=== PATIENT | female | born 1950 | race Caucasian/White ===

== ENCOUNTER 2016-10-19 17:02 | Observation (INO) | payer MEDICARE ==
[2016-10-19] MEDS ORDERED: HYDROMORPHONE HCL INJ/PF 2 MG/ML AMPULE ONE (18:36)
[2016-10-19] MEDS ORDERED: ALPRAZOLAM 0.5 MG TABLET PO SCH (18:45)
[2016-10-19] MEDS ORDERED: METHYLPREDNISOLONE INJ 125 MG/2 ML SDV IV ONE (19:45)
[2016-10-19 19:58] LABS: ABSOLUTE BASOPHILS # (AUTO) 0.1 10^3/uL (0.0-0.2); ABSOLUTE EOSINOPHILS # (AUTO) 0.2 10^3/uL (0.0-0.6); ABSOLUTE LYMPHOCYTES (AUTO) 2.5 10^3/uL (0.5-4.7); ABSOLUTE MONOCYTES (AUTO) 0.5 10^3/uL (0.1-1.4); ABSOLUTE NEUT (AUTO) 3.9 10^3/uL (1.7-8.2); BASOPHILS % (AUTO) 1.2 % (0-2); EOSINOPHILS % (AUTO) 3.2 % (0-6); HEMATOCRIT 32.1 % (36.0-47.0); HEMOGLOBIN 10.9 g/dL (12.0-15.5); HGB HCT DIFFERENCE 0.6; MEAN CORPUSCULAR HEMOGLOBIN 32.5 pg (27.0-33.4); MEAN CORPUSCULAR HGB CONC 33.8 g/dL (32.0-36.0); MEAN CORPUSCULAR VOLUME 96 fl (80-97); MONOCYTES % (AUTO) 6.4 % (3-13); RED BLOOD COUNT 3.35 10^6/uL (3.72-5.28); RED CELL DISTRIBUTION WIDTH 13.2 % (11.5-14.0); SEGMENTED NEUTROPHILS % (AUTO) 54.2 % (42-78); WHITE BLOOD COUNT 7.1 10^3/uL (4.0-10.5)
[2016-10-19 20:12] LABS: ALANINE AMINOTRANSFERASE 31 U/L (9-52); ALBUMIN 4.2 g/dL (3.5-5.0); ALKALINE PHOSPHATASE 99 U/L (38-126); ANION GAP 11 (5-19); ASPARTATE AMINO TRANSFERASE 32 U/L (14-36); BILIRUBIN,DIRECT 0.4 mg/dL (0.0-0.4); BILIRUBIN,TOTAL 0.8 mg/dL (0.2-1.3); BLOOD UREA NITROGEN 15 mg/dL (7-20); CALCIUM 10.6 mg/dL (8.4-10.2); CARBON DIOXIDE 25 mmol/L (22-30); CHLORIDE 108 mmol/L (98-107); CREATININE RESULT 1.18 mg/dL (0.52-1.25); GLUCOSE 134 mg/dL (75-110); POTASSIUM 4.1 mmol/L (3.6-5.0); SODIUM 144.2 mmol/L (137-145); TOTAL PROTEIN 7.1 g/dL (6.3-8.2)
[2016-10-19] MEDS: HYDROCODONE/ACETAMINOPHEN 10-325 MG TABLET PO PRN (21:02)
[2016-10-19] MEDS ORDERED: HYDROXYZINE PAMOATE 50 MG CAPSULE PO PRN (22:14)
[2016-10-19 22:17] LABS: APPEARANCE,URINE CLEAR; BILIRUBIN,URINE NEGATIVE (NEGATIVE); GLUCOSE, URINE NEGATIVE (NEGATIVE); KETONES,URINE NEGATIVE (NEGATIVE); LEUKOCYTE ESTERASE,URINE NEGATIVE (NEGATIVE); NITRITE,URINE NEGATIVE (NEGATIVE); PROTEIN,URINE NEGATIVE (NEGATIVE); URINE SPECIFIC GRAVITY 1.009; UROBILINOGEN,URINE NEGATIVE mg/dL (<2.0)
[2016-10-19] MEDS ORDERED: DONEPEZIL HCL 5 MG TABLET PO ONE (23:00)
[2016-10-19] MEDS ORDERED: AMITRIPTYLINE HCL 50 MG TABLET PO ONE (23:00)
[2016-10-19] MEDS ORDERED: MIRTAZAPINE 15 MG TABLET PO ONE (23:00)
[2016-10-19] MEDS ORDERED: ALPRAZOLAM 0.5 MG TABLET PO ONE (23:00)
[2016-10-20] MEDS: HYDROMORPHONE HCL INJ/PF 2 MG/ML AMPULE IV PRN ×3 (00:40→14:18)
[2016-10-20] MEDS: METHYLPREDNISOLONE INJ 125 MG/2 ML SDV IV SCH ×2 (02:14→09:11)
[2016-10-20] MEDS: ALPRAZOLAM 0.5 MG TABLET PO SCH ×2 (05:34→13:08)
[2016-10-20] MEDS ORDERED: ASPIRIN 81 MG TABLET, CHEWABLE PO SCH (10:00)
[2016-10-20] MEDS ORDERED: BENZTROPINE MESYLATE 1 MG TABLET PO SCH (10:00)
[2016-10-20] MEDS ORDERED: PAROXETINE HCL 20 MG TABLET PO SCH (10:00)
[2016-10-20] MEDS: HYDROCODONE/ACETAMINOPHEN 10-325 MG TABLET PO PRN (10:51)
--- NOTE | 2016-10-20 14:48 | PDOC H&P ---
History of Present Illness Admission Date/PCP: 10/19/16 17:02 ANNABELLE DALTON MD History of Present Illness: JOCELYN KIM is a 66 year old female, she has a history of chronic pain from lumbar disc disease, dementia, she came to the office with complaint of back pain, difficulty standing, numbness and tingling of the legs. She said she cannot stand to even wash the dishes, she also stated she is having difficulty with activities of daily living. She came in as as a same day urgent visit , she has no appointment to be seen in the office today.. She was evaluated in the office, there was minimal loss of muscle strength of the lower extremities, because of concern for cauda equina syndrome, she was admitted directly from the office into the hospital for evaluation and management of her symptoms. MRI of the lumbar spine was done. The MRI showed multilevel disc desiccation with loss of height, there is no significant spinal stenosis or exit foraminal stenosis at L1-L2 , L1-L2, there is mild disc desiccation with minimal broad based bulging no significant spinal stenosis or exit foraminal stenosis at L3-L4 , there is mild broad based disc bulging. Right sided perineural cyst measuring 10 mm there is no significant spinal stenosis or exit foraminal stenosis at L4-L5 Past Medical History Cardiac Medical History: Reports: Hypertension GI Medical History: Reports: Gastroesophageal Reflux Disease Musculoskeltal Medical History: Reports: Arthritis - all over (not sure if rheumatiod) Psychiatric Medical History: Reports: Bipolar Disorder, Dementia, Depression Social History Smoking Status: Former Smoker Drugs: None - Advance Directive Resuscitation Status: Full Code Family History Parental Family History Reviewed: Yes Children Family History Reviewed: Yes Sibling(s) Family History Reviewed.: Yes Medication/Allergy Home Medications: Alprazolam [Xanax] 1 mg PO TID 10/20/16 Amitriptyline HCl [Elavil 50 mg Tablet] 50 mg PO QHS 10/20/16 Aspirin [Aspirin 81 mg Chewable Tablet] 81 mg PO DAILY 10/20/16 Benztropine Mesylate [Benztropine Mesylate 0.5 mg Tablet] 0.5 mg PO QHS Diclofenac Sodium/Misoprostol [Arthrotec 75 mg-200 Mcg Tab] 1 each PO BID #60 tablet. 10/20/16 Donepezil HCl [Aricept] 10 mg PO QPM 10/20/16 Mirtazapine [Remeron] 45 mg PO QHS 10/20/16 Paroxetine HCl [Paxil] 60 mg PO QAM 10/20/16 Prednisone 20 mg PO DAILY #40 tablet 10/20/16 Allergies/Adverse Reactions: carbamazepine [From Tegretol] Allergy (Intermediate, Verified 10/19/16 18:51) swelling/itching ceftriaxone [From Rocephin] Allergy (Intermediate, Verified 10/19/16 18:51) swelling/itching iodine Allergy (Intermediate, Verified 10/19/16 18:50) swelling/itching Review of Systems Constitutional: ABSENT: chills, fever(s), headache(s), weight gain, weight loss Eyes: ABSENT: visual disturbances Ears: ABSENT: hearing changes Cardiovascular: ABSENT: chest pain, dyspnea on exertion, edema, orthropnea, palpitations Respiratory: ABSENT: cough, hemoptysis Gastrointestinal: ABSENT: abdominal pain, constipation, diarrhea, hematemesis, hematochezia, nausea, vomiting Genitourinary: ABSENT: dysuria, hematuria Musculoskeletal: PRESENT: back pain Integumentary: ABSENT: rash, wounds Neurological: PRESENT: abnormal gait, numbness, paresthesias Psychiatric: ABSENT: anxiety, depression, homidical ideation, suicidal ideation Endocrine: ABSENT: cold intolerance, heat intolerance, menstrual abnormalities, polydipsia, polyuria Hematologic/Lymphatic: ABSENT: easy bleeding, easy bruising, lymphadenopathy Physical Exam Vital Signs: Temp Pulse Resp BP Pulse Ox 98 F 69 17 140/80 H 97 10/20/16 12:00 10/20/16 12:00 10/20/16 12:00 10/20/16 12:00 10/20/16 12:00 Intake & Output 10/19/16 10/20/16 10/21/16 06:59 06:59 06:59 Intake Total 390 Balance 390 Weight 66.3 kg General appearance: PRESENT: no acute distress, well-developed, well-nourished Head exam: PRESENT: atraumatic, normocephalic Eye exam: PRESENT: conjunctiva pink, EOMI, PERRLA Ear exam: PRESENT: normal external ear exam Mouth exam: PRESENT: moist, tongue midline Neck exam: PRESENT: full ROM Respiratory exam: PRESENT: clear to auscultation courtney Cardiovascular exam: PRESENT: RRR, +S1 Vascular exam: PRESENT: normal capillary refill GI/Abdominal exam: PRESENT: normal bowel sounds, soft Rectal exam: PRESENT: deferred Neurological exam: PRESENT: alert, awake, oriented to person, oriented to place , oriented to time, oriented to situation, CN II-XII grossly intact Psychiatric exam: PRESENT: appropriate affect, normal mood Skin exam: PRESENT: dry, intact, warm Results Laboratory Results: 10/19/16 19:44 10/19/16 19:44 10/19/16 10/19/16 10/19/16 19:44 19:44 20:00 WBC 7.1 RBC 3.35 L Hgb 10.9 L Hct 32.1 L MCV 96 MCH 32.5 MCHC 33.8 RDW 13.2 Plt Count 214 Seg Neutrophils % 54.2 Lymphocytes % 35.0 Monocytes % 6.4 Eosinophils % 3.2 Basophils % 1.2 Absolute Neutrophils 3.9 Absolute Lymphocytes 2.5 Absolute Monocytes 0.5 Absolute Eosinophils 0.2 Absolute Basophils 0.1 Sodium 144.2 Potassium 4.1 Chloride 108 H Carbon Dioxide 25 Anion Gap 11 BUN 15 Creatinine 1.18 Est GFR ( Amer) 55 L Est GFR (Non-Af Amer) 46 L Glucose 134 H Calcium 10.6 H Total Bilirubin 0.8 AST 32 ALT 31 Alkaline Phosphatase 99 Total Protein 7.1 Albumin 4.2 Urine Color STRAW Urine Appearance CLEAR Urine pH 5.0 Ur Specific [place] 1.009 Urine Protein NEGATIVE Urine Glucose (UA) NEGATIVE Urine Ketones NEGATIVE Urine Blood NEGATIVE Urine Nitrite NEGATIVE Ur Leukocyte Esterase NEGATIVE Urine WBC (Auto) 1 Urine RBC (Auto) 0 Impressions: Chest X-Ray 10/19/16 00:00 IMPRESSION: NO SIGNIFICANT RADIOGRAPHIC FINDING IN THE CHEST. Lumbar Spine MRI 10/19/16 00:00 IMPRESSION: MILD MULTILEVEL DEGENERATIVE DISC DISEASE WITHOUT SIGNIFICANT SPINAL CANAL STENOSIS OR NEURAL FORAMINAL NARROWING. INCIDENTAL PERINEURAL AND TARLOV CYSTS ABOVE. Assessment & Plan - Diagnosis (1) Lumbar disc disease with radiculopathy Is this a current diagnosis for this admission?: YesPlan: Patient was admitted for observation because of radicular symptoms she was treated empirically with intravenous Solu-Medrol and she was continued on her regular home medications there is no MRI evidence of cauda equina syndrome (2) Essential (primary) hypertension Is this a current diagnosis for this admission?: Yes
--- NOTE | 2016-10-20 15:01 | PDOC DISCHARGE SUMMARY ---
General - Admit/Disc Date/PCP Admission Date/Primary Care Provider: 10/19/16 17:02 ANNABELLE DALTON MD Discharge Date: 10/20/16 - Discharge Diagnosis (1) Lumbar disc disease with radiculopathy Is this a current diagnosis for this admission?: Yes (2) Essential (primary) hypertension Is this a current diagnosis for this admission?: Yes - Additional Information Resuscitation Status: Full Code Home Medications: Alprazolam [Xanax] 1 mg PO TID 10/20/16 Amitriptyline HCl [Elavil 50 mg Tablet] 50 mg PO QHS 10/20/16 Aspirin [Aspirin 81 mg Chewable Tablet] 81 mg PO DAILY 10/20/16 Benztropine Mesylate [Benztropine Mesylate 0.5 mg Tablet] 0.5 mg PO QHS Diclofenac Sodium/Misoprostol [Arthrotec 75 mg-200 Mcg Tab] 1 each PO BID #60 tablet. 10/20/16 Donepezil HCl [Aricept] 10 mg PO QPM 10/20/16 Mirtazapine [Remeron] 45 mg PO QHS 10/20/16 Paroxetine HCl [Paxil] 60 mg PO QAM 10/20/16 Prednisone 20 mg PO DAILY #40 tablet 10/20/16 History of Present Illness History of Present Illness: JOCELYN KIM is a 66 year old female, she has a history of chronic pain from lumbar disc disease, dementia, she came to the office with complaint of back pain, difficulty standing, numbness and tingling of the legs. She said she cannot stand to even wash the dishes, she also stated she is having difficulty with activities of daily living. She came in as as a same day urgent visit , she has no appointment to be seen in the office today.. She was evaluated in the office, there was minimal loss of muscle strength of the lower extremities, because of concern for cauda equina syndrome, she was admitted directly from the office into the hospital for evaluation and management of her symptoms. MRI of the lumbar spine was done. The MRI showed multilevel disc desiccation with loss of height, there is no significant spinal stenosis or exit foraminal stenosis at L1-L2 , L1-L2, there is mild disc desiccation with minimal broad based bulging no significant spinal stenosis or exit foraminal stenosis at L3-L4 , there is mild broad based disc bulging. Right sided perineural cyst measuring 10 mm there is no significant spinal stenosis or exit foraminal stenosis at L4-L5 Hospital Course Hospital Course: Patient was admitted because of radiculopathy from lumbar disc disease, she was treated with IV Solu-Medrol. There was no evidence of spinal cord compression she be discharged home she was brought in for observation, we will make arrangements for consultation for logistics specialist outpatient. Physical Exam Vital Signs: Temp Pulse Resp BP Pulse Ox 98 F 69 17 140/80 H 97 10/20/16 12:00 10/20/16 12:00 10/20/16 12:00 10/20/16 12:00 10/20/16 12:00 Intake & Output 10/19/16 10/20/16 10/21/16 06:59 06:59 06:59 Intake Total 390 Balance 390 Weight 66.3 kg General appearance: PRESENT: no acute distress, well-developed, well-nourished Head exam: PRESENT: atraumatic, normocephalic Eye exam: PRESENT: conjunctiva pink, EOMI, PERRLA Ear exam: PRESENT: normal external ear exam Mouth exam: PRESENT: moist, tongue midline Neck exam: PRESENT: full ROM Cardiovascular exam: PRESENT: RRR, +S1, +S2 Vascular exam: PRESENT: normal capillary refill GI/Abdominal exam: PRESENT: normal bowel sounds, soft Rectal exam: PRESENT: deferred Neurological exam: PRESENT: alert, awake, oriented to person, oriented to place , oriented to time, oriented to situation, CN II-XII grossly intact Psychiatric exam: PRESENT: appropriate affect, normal mood Skin exam: PRESENT: dry, intact, warm Results Laboratory Results: 10/19/16 19:44 10/19/16 19:44 10/19/16 10/19/16 10/19/16 19:44 19:44 20:00 WBC 7.1 RBC 3.35 L Hgb 10.9 L Hct 32.1 L MCV 96 MCH 32.5 MCHC 33.8 RDW 13.2 Plt Count 214 Seg Neutrophils % 54.2 Lymphocytes % 35.0 Monocytes % 6.4 Eosinophils % 3.2 Basophils % 1.2 Absolute Neutrophils 3.9 Absolute Lymphocytes 2.5 Absolute Monocytes 0.5 Absolute Eosinophils 0.2 Absolute Basophils 0.1 Sodium 144.2 Potassium 4.1 Chloride 108 H Carbon Dioxide 25 Anion Gap 11 BUN 15 Creatinine 1.18 Est GFR ( Amer) 55 L Est GFR (Non-Af Amer) 46 L Glucose 134 H Calcium 10.6 H Total Bilirubin 0.8 AST 32 ALT 31 Alkaline Phosphatase 99 Total Protein 7.1 Albumin 4.2 Urine Color STRAW Urine Appearance CLEAR Urine pH 5.0 Ur Specific [place] 1.009 Urine Protein NEGATIVE Urine Glucose (UA) NEGATIVE Urine Ketones NEGATIVE Urine Blood NEGATIVE Urine Nitrite NEGATIVE Ur Leukocyte Esterase NEGATIVE Urine WBC (Auto) 1 Urine RBC (Auto) 0 Impressions: Chest X-Ray 10/19/16 00:00 IMPRESSION: NO SIGNIFICANT RADIOGRAPHIC FINDING IN THE CHEST. Lumbar Spine MRI 10/19/16 00:00 IMPRESSION: MILD MULTILEVEL DEGENERATIVE DISC DISEASE WITHOUT SIGNIFICANT SPINAL CANAL STENOSIS OR NEURAL FORAMINAL NARROWING. INCIDENTAL PERINEURAL AND TARLOV CYSTS ABOVE.
[2016-10-20 15:42] VITALS: BP 130/80
[2016-10-20] MEDS ORDERED: AMITRIPTYLINE HCL 50 MG TABLET PO SCH (18:00)
[2016-10-20] MEDS ORDERED: DONEPEZIL HCL 5 MG TABLET PO SCH (18:00)
[2016-10-20] MEDS ORDERED: MIRTAZAPINE 15 MG TABLET PO SCH (18:00)
== END 2016-10-20 16:40 | disposition home or self-care (01) ==
LOC: 4N 17:02
PROVIDERS: ADMIT Internal Medicine; ATTEND Internal Medicine
DX: M54.16 Radiculopathy, lumbar region (principal); I10 Essential (primary) hypertension; G96.19 Other disorders of meninges, not elsewhere classified; R26.89 Other abnormalities of gait and mobility; R20.0 Anesthesia of skin; R20.2 Paresthesia of skin; M19.90 Unspecified osteoarthritis, unspecified site; F03.90 Unspecified dementia, unspecified severity, without behavioral disturbance, psychotic disturbance, mood disturbance, and anxiety; M81.0 Age-related osteoporosis without current pathological fracture; Z87.891 Personal history of nicotine dependence; Z79.82 Long term (current) use of aspirin; Z79.52 Long term (current) use of systemic steroids; Z79.1 Long term (current) use of non-steroidal anti-inflammatories (NSAID); Z79.899 Other long term (current) drug therapy; Z87.81 Personal history of (healed) traumatic fracture
CPT/HCPCS: 36415; 87040; 87086; 85025; 80076; 80048; 81001; 72148; 71020; G0378 ×2; G0379; A9270 ×10; J2930 ×2; J1170 ×2; J3490

== ENCOUNTER 2016-11-19 18:58 | Inpatient (IN) | payer MEDICARE ==
[2016-11-19 19:52] LABS: ABSOLUTE EOSINOPHILS # (AUTO) 0.1 10^3/uL (0.0-0.6); ABSOLUTE LYMPHOCYTES (AUTO) 2.2 10^3/uL (0.5-4.7); ABSOLUTE MONOCYTES (AUTO) 0.9 10^3/uL (0.1-1.4); ABSOLUTE NEUT (AUTO) 8.1 10^3/uL (1.7-8.2); BASOPHILS % (AUTO) 0.4 % (0-2); EOSINOPHILS % (AUTO) 0.8 % (0-6); HEMATOCRIT 33.2 % (36.0-47.0); HEMOGLOBIN 10.8 g/dL (12.0-15.5); HGB HCT DIFFERENCE -0.8; LYMPHOCYTES % (AUTO) 19.5 % (13-45); MEAN CORPUSCULAR HEMOGLOBIN 32.2 pg (27.0-33.4); MEAN CORPUSCULAR HGB CONC 32.6 g/dL (32.0-36.0); MEAN CORPUSCULAR VOLUME 99 fl (80-97); MONOCYTES % (AUTO) 7.9 % (3-13); RED BLOOD COUNT 3.36 10^6/uL (3.72-5.28); RED CELL DISTRIBUTION WIDTH 14.6 % (11.5-14.0); SEGMENTED NEUTROPHILS % (AUTO) 71.4 % (42-78); WHITE BLOOD COUNT 11.4 10^3/uL (4.0-10.5)
[2016-11-19 19:56] LABS: PROTHROMBIN TIME 13.8 SEC (11.4-15.4)
[2016-11-19 20:02] LABS: ALANINE AMINOTRANSFERASE 24 U/L (9-52); ALBUMIN 3.4 g/dL (3.5-5.0); ALKALINE PHOSPHATASE 111 U/L (38-126); ANION GAP 9 (5-19); ASPARTATE AMINO TRANSFERASE 17 U/L (14-36); BILIRUBIN,DIRECT 0.4 mg/dL (0.0-0.4); BILIRUBIN,TOTAL 0.5 mg/dL (0.2-1.3); BLOOD UREA NITROGEN 25 mg/dL (7-20); CALCIUM 10.1 mg/dL (8.4-10.2); CARBON DIOXIDE 24 mmol/L (22-30); CHLORIDE 101 mmol/L (98-107); CREATINE KINASE 33 U/L (30-135); CREATININE RESULT 1.99 mg/dL (0.52-1.25); GLUCOSE 104 mg/dL (75-110); POTASSIUM 4.4 mmol/L (3.6-5.0); SODIUM 133.5 mmol/L (137-145); TOTAL PROTEIN 6.4 g/dL (6.3-8.2)
[2016-11-19] MEDS: NORMAL SALINE 1000 ML 1,000 ML IV PRN ×2 (20:10→22:56)
[2016-11-19 20:14] LABS: CREATINE KINASE MB 0.34 ng/mL (<4.55); TROPONIN I 0.021 ng/mL
[2016-11-19 20:16] LABS: PARTIAL THROMBOPLASTIN TIME < 23.0 SEC (23.5-35.8)
--- NOTE | 2016-11-19 20:34 | EKG REPORT ---
SEVERITY:- NORMAL ECG - SINUS RHYTHM : Confirmed by: Rina Shrap 19-Nov-2016 20:33:20
[2016-11-19] MEDS ORDERED: NORMAL SALINE 1000 ML 1,000 ML IV PRN (21:53)
--- NOTE | 2016-11-19 22:02 | ER Document Report ---
ED General - General Chief Complaint: Fall Injury Stated Complaint: POSSIBLE SYNCOPE Time Seen by Provider: 11/19/16 20:00 Mode of Arrival: Medic Information source: Patient, Emergency Med Personnel Notes: This is a 66-year-old female with a history of migraines who brought to the emergency room after a witnessed syncopal episode. Patient is accompanied by family member states the patient was getting out of her car and just passed out. Patient states she does not remember the event. She denies any chest pain , shortness of breath or any palpitations. TRAVEL OUTSIDE OF THE [place] IN LAST 30 DAYS: No - HPI Onset: Just prior to arrival Onset/Duration: Sudden Quality of pain: Dull Severity: Moderate Pain Level: 2 Associated symptoms: Other - Head Exacerbated by: Denies Relieved by: Denies Similar symptoms previously: No Recently seen / treated by doctor: No - Related Data Allergies/Adverse Reactions: carbamazepine [From Tegretol] Allergy (Intermediate, Verified 10/19/16 18:51) swelling/itching ceftriaxone [From Rocephin] Allergy (Intermediate, Verified 10/19/16 18:51) swelling/itching iodine Allergy (Intermediate, Verified 10/19/16 18:50) swelling/itching Past Medical History - General Information source: Patient - Social History Smoking Status: Never Smoker Cigarette use (# per day): No Chew tobacco use (# tins/day): No Frequency of alcohol use: None Drug Abuse: None Lives with: Family Family History: Reviewed & Not Pertinent Patient has suicidal ideation: No Patient has homicidal ideation: No - Past Medical History Cardiac Medical History: Reports: Hx Hypertension Denies: Hx Congestive Heart Failure, Hx Heart Attack Pulmonary Medical History: Denies: Hx Asthma, Hx Bronchitis, Hx COPD, Hx Pneumonia, Hx Tuberculosis Neurological Medical History: Denies: Hx Seizures Endocrine Medical History: Reports: None Renal/ Medical History: Denies: Hx End Stage Renal Disease, Hx Kidney Stones GI Medical History: Reports: Hx Gastroesophageal Reflux Disease. Denies: Hx Cirrhosis, Hx Ulcer Musculoskeltal Medical History: Reports Hx Arthritis - all over (not sure if rheumatiod), Denies Hx Multiple Sclerosis Psychiatric Medical History: Reports: Hx Bipolar Disorder, Hx Dementia, Hx Depression Denies: Hx Schizophrenia Surgical Hx: Other - Noncontributory Review of Systems - Review of Systems Constitutional: denies: Chills, Fever EENT: No symptoms reported Cardiovascular: Syncope. denies: Palpitations, Orthopnea Respiratory: No symptoms reported Gastrointestinal: No symptoms reported Genitourinary: No symptoms reported Female Genitourinary: No symptoms reported Musculoskeletal: No symptoms reported Skin: No symptoms reported - Patient's headache started after the fall Hematologic/Lymphatic: No symptoms reported Neurological/Psychological: Headaches Physical Exam - Vital signs Vitals: Pulse Resp BP Pulse Ox 91 17 91/56 L 94 11/19/16 19:17 11/19/16 19:17 11/19/16 19:17 11/19/16 19:17 Notes: Physical exam: GENERAL: 66-year-old female, alert and oriented 3. She is in a cervical collar. HEAD: Patient does have a contusion to the occipital area of the scalp. There is no lacerations. There is no depressed skull fractures palpable. EYES: Pupils equal round and reactive to light, extraocular movements intact, sclera anicteric, conjunctiva are normal. ENT: Oropharynx clear without exudates. Moist mucous membranes. NECK: Normal range of motion, supple without lymphadenopathy. The patient's cervical spine is nontender. LUNGS: Breath sounds clear to auscultation bilaterally and equal. No wheezes rales or rhonchi. HEART: Regular rate and rhythm without murmurs, rubs or gallops. ABDOMEN: Soft, normoactive bowel sounds. No tenderness to palpation. No guarding, no rebound. No masses appreciated. EXTREMITIES: Normal range of motion, no pitting or edema. No clubbing or cyanosis. NEUROLOGICAL: Cranial nerves II through XII grossly intact. Normal speech, normal gait. PSYCH: Normal mood, normal affect. SKIN: Warm, Dry, normal turgor, no rashes or lesions noted. Course - Vital Signs Vital signs: Temp Pulse Resp BP Pulse Ox 91 17 145/78 H 100 11/19/16 19:17 11/19/16 19:30 11/19/16 20:31 11/19/16 20:31 - Laboratory Result Diagrams: 11/19/16 19:30 11/19/16 19:30 Laboratory results interpreted by me: 11/19/16 11/19/16 11/19/16 19:30 19:30 19:30 WBC 11.4 H RBC 3.36 L Hgb 10.8 L Hct 33.2 L MCV 99 H RDW 14.6 H APTT < 23.0 L Sodium 133.5 L BUN 25 H Creatinine 1.99 H Est GFR ( Amer) 30 L Est GFR (Non-Af Amer) 25 L Albumin 3.4 L - Diagnostic Test Radiology reviewed: Image reviewed, Reports reviewed - CT of the head shows no acute bleed. CT of the cervical spine shows no acute bony injury. - EKG Interpretation by Il Rate: Normal Rhythm: NSR - EKG shows normal sinus rhythm with a ventricular rate of 94, no acute ST-T wave changes Critical Care Note - Critical Care Note Total time excluding time spent on procedures (mins): 50 Discharge - Discharge Clinical Impression: syncope, acute kidney injury Condition: Stable Disposition: ADMITTED OBSERVATION Admitting Provider: [facility] Unit Admitted: Telemetry
[2016-11-19] MEDS ORDERED: ONDANSETRON HCL INJ/PF 4 MG/2 ML SDV IV ONE (22:38)
[2016-11-19] MEDS ORDERED: MORPHINE SULFATE 10 MG/ML INJ IV PRN (22:38)
[2016-11-20 04:35] LABS: ABSOLUTE BASOPHILS # (AUTO) 0.1 10^3/uL (0.0-0.2); ABSOLUTE EOSINOPHILS # (AUTO) 0.1 10^3/uL (0.0-0.6); ABSOLUTE LYMPHOCYTES (AUTO) 2.2 10^3/uL (0.5-4.7); ABSOLUTE MONOCYTES (AUTO) 0.7 10^3/uL (0.1-1.4); ABSOLUTE NEUT (AUTO) 5.7 10^3/uL (1.7-8.2); BASOPHILS % (AUTO) 0.8 % (0-2); EOSINOPHILS % (AUTO) 1.2 % (0-6); HEMATOCRIT 28.5 % (36.0-47.0); HEMOGLOBIN 9.5 g/dL (12.0-15.5); LYMPHOCYTES % (AUTO) 25.2 % (13-45); MEAN CORPUSCULAR HEMOGLOBIN 32.7 pg (27.0-33.4); MEAN CORPUSCULAR HGB CONC 33.3 g/dL (32.0-36.0); MEAN CORPUSCULAR VOLUME 98 fl (80-97); MONOCYTES % (AUTO) 8.2 % (3-13); RED CELL DISTRIBUTION WIDTH 14.4 % (11.5-14.0); SEGMENTED NEUTROPHILS % (AUTO) 64.6 % (42-78); WHITE BLOOD COUNT 8.8 10^3/uL (4.0-10.5)
[2016-11-20 04:52] LABS: ANION GAP 9 (5-19); BLOOD UREA NITROGEN 18 mg/dL (7-20); CALCIUM 9.5 mg/dL (8.4-10.2); CARBON DIOXIDE 23 mmol/L (22-30); CHLORIDE 108 mmol/L (98-107); CREATINE KINASE 26 U/L (30-135); CREATININE RESULT 1.49 mg/dL (0.52-1.25); GLUCOSE 98 mg/dL (75-110); POTASSIUM 4.7 mmol/L (3.6-5.0); SODIUM 140.3 mmol/L (137-145)
[2016-11-20] MEDS: GABAPENTIN 300 MG CAPSULE PO SCH ×3 (04:52→21:23)
[2016-11-20] MEDS: ACETAMINOPHEN 325 MG TABLET PO PRN ×3 (04:52→17:59)
[2016-11-20] MEDS: NORMAL SALINE 1000 ML 1,000 ML IV PRN ×4 (04:52→17:59)
[2016-11-20 05:02] LABS: CREATINE KINASE MB 0.53 ng/mL (<4.55); TROPONIN I 0.029 ng/mL
[2016-11-20 12:23] LABS: CREATINE KINASE MB 0.49 ng/mL (<4.55); TROPONIN I 0.028 ng/mL
[2016-11-20] MEDS ORDERED: NORMAL SALINE 250 ML IV ONE (12:30)
[2016-11-20 18:36] LABS: ALANINE AMINOTRANSFERASE 23 U/L (9-52); ALBUMIN 3.1 g/dL (3.5-5.0); ALKALINE PHOSPHATASE 122 U/L (38-126); ANION GAP 5 (5-19); ASPARTATE AMINO TRANSFERASE 18 U/L (14-36); BILIRUBIN,DIRECT 0.3 mg/dL (0.0-0.4); BILIRUBIN,TOTAL 0.4 mg/dL (0.2-1.3); BLOOD UREA NITROGEN 19 mg/dL (7-20); CALCIUM 9.6 mg/dL (8.4-10.2); CARBON DIOXIDE 26 mmol/L (22-30); CHLORIDE 103 mmol/L (98-107); CREATININE RESULT 1.54 mg/dL (0.52-1.25); GLUCOSE 90 mg/dL (75-110); POTASSIUM 4.4 mmol/L (3.6-5.0); SODIUM 134.4 mmol/L (137-145); TOTAL PROTEIN 5.8 g/dL (6.3-8.2)
--- NOTE | 2016-11-20 19:16 | XCELERA REPORT ---
[address] [address] Transthoracic Echocardiogram Report Name: JOCELYN KIM Age: 66 yrs Gender: Female : 1950 Patient Status: Inpatient Patient Location: 4N\S\[facility]\S\A Study Date: 11/20/2016 09:55 AM Height: 62 in Weight: 149 lb BSA: 1.7 m2 Procedure: A complete two-dimensional transthoracic echocardiogram was performed (2D, M-mode, spectral and color flow Doppler). The study was technically difficult with many images being suboptimal in quality. Reason For Study: syncope Ordering Physician: ANNABELLE DALTON Performed By: Lulu Fox Interpretation Summary The left ventricular ejection fraction is normal. There is borderline concentric left ventricular hypertrophy. Doppler measurements suggest pseudonormalized left ventricular relaxation, which is associated with grade II/IV or mild to moderate diastolic dysfunction The left ventricle is grossly normal size. Wall motion cannot be accurately commented on, but no definite regional wall motion abnormalities noted. The right ventricular systolic function is normal. The left atrial size is normal. The right atrium is normal in size There is a trace amount of mitral regurgitation There is no mitral valve stenosis. No aortic regurgitation is present. There is no aortic valve stenosis There is a trace or physiologic amount of tricuspid regurgitation Tricuspid regurgitation jet envelope not well defined to measure RV systolic pressure accurately. There is no pericardial effusion. MMode/2D Measurements \T\ Calculations RVDd: 2.3 cm LVIDd: 3.5 cm FS: 37.7 % Ao root diam: 3.3 cm IVSd: 1.0 cm LVIDs: 2.2 cm EDV(Teich): 50.5 ml LVPWd: 0.96 cmESV(Teich): 15.7 ml Ao root area: 8.5 cm2 EF(Teich): 68.9 % LA dimension: 2.7 cm LVOT diam: 1.9 cm LVOT area: 2.7 cm2 Doppler Measurements \T\ Calculations MV E max erica: MV P1/2t max erica: Ao V2 max: LV V1 max P.9 cm/sec 67.9 cm/sec 155.1 cm/sec 4.1 mmHg MV A max erica: MV P1/2t: 54.0 msec Ao max PG: LV V1 max: 62.0 cm/sec MVA(P1/2t): 4.1 cm2 9.6 mmHg 101.0 cm/sec MV E/A: 1.1 MV dec slope: BRENDEN(V,D): 1.8 cm2 368.4 cm/sec2 PA V2 max: TR max erica: 96.3 cm/sec 213.6 cm/sec PA max PG: TR max P.2 mmHg 3.7 mmHg Left Ventricle The left ventricle is grossly normal size. There is borderline concentric left ventricular hypertrophy. The left ventricular ejection fraction is normal. Doppler measurements suggest pseudonormalized left ventricular relaxation, which is associated with grade II/IV or mild to moderate diastolic dysfunction. Wall motion cannot be accurately commented on, but no definite regional wall motion abnormalities noted. Right Ventricle Borderline right ventricular enlargement. There is normal right ventricular wall thickness. The right ventricular systolic function is normal. Atria The right atrium is normal in size. The left atrial size is normal. Interarterial septum not well visualized and not well dopplered. Cannot comment on ASD/PFO presence. Mitral Valve The mitral valve is grossly normal. There is no mitral valve stenosis. There is a trace amount of mitral regurgitation. Aortic Valve The aortic valve is grossly normal. There is no aortic valve stenosis. No aortic regurgitation is present. Tricuspid Valve The tricuspid valve is not well visualized, but is grossly normal. There is no tricuspid stenosis. There is a trace or physiologic amount of tricuspid regurgitation. Tricuspid regurgitation jet envelope not well defined to measure RV systolic pressure accurately. Pulmonic Valve The pulmonic valve is not well visualized. Great Vessels The aortic root is not well visualized. The inferior vena cava appeared normal and decreased > 50% with respiration (RAP 5-10 mmHg). Effusions There is no pericardial effusion. : ANNABELLE DALTON > Rina Sharp
[2016-11-20 20:18] LABS: CREATINE KINASE MB 0.56 ng/mL (<4.55); TROPONIN I 0.026 ng/mL
[2016-11-20] MEDS: HYDROCODONE/ACETAMINOPHEN 5-325 MG TABLET PO PRN (21:22)
[2016-11-21] MEDS: ACETAMINOPHEN 325 MG TABLET PO PRN (01:20)
[2016-11-21] MEDS: GABAPENTIN 300 MG CAPSULE PO SCH ×3 (06:00→23:10)
[2016-11-21] MEDS ORDERED: BUTALB/ACETAMINOPHEN/CAFFEINE 1 TAB EACH ONE (17:37)
[2016-11-21] MEDS ORDERED: ENOXAPARIN SODIUM INJ 40 MG/0.4 ML DISP.SYRIN SUBCUT ONE (17:37)
--- NOTE | 2016-11-21 21:14 | PDOC H&P ---
History of Present Illness Admission Date/PCP: 11/20/16 23:24 History of Present Illness: JOCELYN KIM is a 66 year old female, she came to the emergency room because of loss of consciousness ,she was accompanied by family member to the emergency room, the history was that she had episode of loss of consciousness she was getting out of the car when I saw patient on the floor, she stated that she had episode of vertigo with associated gait disturbance, she could not hold still, she was very dizzy. The presentation is consistent with cerebellar stroke, MRI of the brain was ordered it showed acute infarction in the left cerebellum approximately 1.3 cm in greatest dimension at the posterior margin. There was associated low blood pressure with acute kidney injury Past Medical History Cardiac Medical History: Reports: Hypertension Endocrine Medical History: Reports: None GI Medical History: Reports: Gastroesophageal Reflux Disease Musculoskeltal Medical History: Reports: Arthritis - all over (not sure if rheumatiod) Psychiatric Medical History: Reports: Bipolar Disorder, Dementia, Depression Social History Lives with: Family Smoking Status: Never Smoker Drugs: None - Advance Directive Resuscitation Status: Full Code Family History Family History: Reviewed & Not Pertinent Parental Family History Reviewed: Yes Children Family History Reviewed: Yes Sibling(s) Family History Reviewed.: Yes Medication/Allergy Home Medications: Alprazolam [Xanax] 1 mg PO Q8 11/20/16 Amitriptyline HCl [Amitriptyline HCl] 50 mg PO QHS 11/20/16 Aspirin [Aspirin 81 mg Chewable Tablet] 81 mg PO DAILY 11/20/16 Benztropine Mesylate [Benztropine Mesylate 0.5 mg Tablet] 0.5 mg PO QHS Hydroxyzine Pamoate [Vistaril 50 mg Capsule] 50 mg PO Q8HP PRN 11/20/16 Lisinopril/Hydrochlorothiazide [Lisinopril-Hctz 20-12.5 mg Tab] 20 mg PO DAILY 11/20/16 Mirtazapine 45 mg PO QHS 11/20/16 Paroxetine HCl [Paxil] 60 mg PO QAM 11/20/16 Pramipexole Di-HCl [Pramipexole Dihydrochloride] 0.125 mg PO QHS 11/20/16 Allergies/Adverse Reactions: carbamazepine [From Tegretol] Allergy (Intermediate, Verified 10/19/16 18:51) swelling/itching ceftriaxone [From Rocephin] Allergy (Intermediate, Verified 10/19/16 18:51) swelling/itching iodine Allergy (Intermediate, Verified 10/19/16 18:50) swelling/itching Review of Systems Constitutional: ABSENT: chills, fever(s), headache(s), weight gain, weight loss Eyes: ABSENT: visual disturbances Ears: ABSENT: hearing changes Cardiovascular: ABSENT: chest pain, dyspnea on exertion, edema, orthropnea, palpitations Respiratory: ABSENT: cough, hemoptysis Gastrointestinal: ABSENT: abdominal pain, constipation, diarrhea, hematemesis, hematochezia, nausea, vomiting Genitourinary: ABSENT: dysuria, hematuria Musculoskeletal: ABSENT: joint swelling Integumentary: ABSENT: rash, wounds Neurological: PRESENT: abnormal gait, frequent falls, vertigo Psychiatric: ABSENT: anxiety, depression, homidical ideation, suicidal ideation Endocrine: ABSENT: cold intolerance, heat intolerance, menstrual abnormalities, polydipsia, polyuria Hematologic/Lymphatic: ABSENT: easy bleeding, easy bruising, lymphadenopathy Physical Exam Vital Signs: Temp Pulse Resp BP Pulse Ox 97.9 F 85 20 132/74 H 96 11/21/16 00:23 11/21/16 00:42 11/21/16 00:42 11/21/16 00:42 11/21/16 00:42 General appearance: PRESENT: mild distress Head exam: PRESENT: atraumatic, normocephalic Eye exam: PRESENT: PERRLA Ear exam: PRESENT: normal external ear exam Mouth exam: PRESENT: moist, tongue midline Neck exam: PRESENT: full ROM Respiratory exam: PRESENT: clear to auscultation courtney Cardiovascular exam: PRESENT: RRR, +S1, +S2 Pulses: PRESENT: normal dorsalis pedis pul, +2 pedal pulses bilateral Vascular exam: PRESENT: normal capillary refill GI/Abdominal exam: PRESENT: normal bowel sounds, soft Rectal exam: PRESENT: deferred Neurological exam: PRESENT: alert, oriented to time, oriented to situation, abnormal gait Psychiatric exam: PRESENT: appropriate affect, normal mood Skin exam: PRESENT: dry, intact, warm Results Impressions: Cervical Spine CT 11/19/16 00:00 IMPRESSION: NO ACUTE OSSEOUS ABNORMALITY. ATHEROSCLEROTIC DISEASE. Chest X-Ray 11/19/16 18:58 IMPRESSION: NO ACUTE RADIOGRAPHIC FINDING IN THE CHEST. Head CT 11/19/16 18:58 IMPRESSION: MILD CHRONIC CHANGES OF ATROPHY AND MICROVASCULAR ISCHEMIA. NO CT EVIDENCE OF ACUTE ISCHEMIA, HEMORRHAGE, OR MASS LESION. Head MRI 11/20/16 00:00 IMPRESSION: Positive for acute or sub-acute infarction in the left cerebellum, approximately 1.3 cm in greatest dimension at the posterior margin. Renal Ultrasound 11/20/16 00:00 IMPRESSION: No hydronephrosis. Assessment & Plan - Diagnosis (1) Acute ischemic vertebrobasilar artery cerebellar stroke Is this a current diagnosis for this admission?: YesPlan: She has acute ischemic cerebellar stroke, will be managed according to stroke protocol (2) Hypotension Is this a current diagnosis for this admission?: Yes (3) Acute kidney injury Is this a current diagnosis for this admission?: YesPlan: There is acute kidney injury, probably prerenal
--- NOTE | 2016-11-21 21:22 | PDOC PROGRESS REPORT ---
Subjective Progress Note for:: 11/21/16 Subjective:: Patient was admitted because of a cerebellar stroke, she was seen by the bedside today. Physical Exam Vital Signs: Temp Pulse Resp BP Pulse Ox 97.9 F 85 20 132/74 H 96 11/21/16 00:23 11/21/16 00:42 11/21/16 00:42 11/21/16 00:42 11/21/16 00:42 General appearance: PRESENT: no acute distress Head exam: PRESENT: atraumatic Eye exam: PRESENT: PERRLA Respiratory exam: PRESENT: clear to auscultation courtney Cardiovascular exam: PRESENT: +S1, +S2 GI/Abdominal exam: PRESENT: soft Neurological exam: PRESENT: alert, abnormal gait, CN II-XII grossly intact Results Impressions: Cervical Spine CT 11/19/16 00:00 IMPRESSION: NO ACUTE OSSEOUS ABNORMALITY. ATHEROSCLEROTIC DISEASE. Chest X-Ray 11/19/16 18:58 IMPRESSION: NO ACUTE RADIOGRAPHIC FINDING IN THE CHEST. Head CT 11/19/16 18:58 IMPRESSION: MILD CHRONIC CHANGES OF ATROPHY AND MICROVASCULAR ISCHEMIA. NO CT EVIDENCE OF ACUTE ISCHEMIA, HEMORRHAGE, OR MASS LESION. Head MRI 11/20/16 00:00 IMPRESSION: Positive for acute or sub-acute infarction in the left cerebellum, approximately 1.3 cm in greatest dimension at the posterior margin. Renal Ultrasound 11/20/16 00:00 IMPRESSION: No hydronephrosis. Assessment & Plan - Diagnosis (1) Acute ischemic vertebrobasilar artery cerebellar stroke Is this a current diagnosis for this admission?: YesPlan: MRA of the brain is ordered (2) Hypotension Is this a current diagnosis for this admission?: Yes (3) Acute kidney injury Is this a current diagnosis for this admission?: Yes
[2016-11-21] MEDS: HYDROCODONE/ACETAMINOPHEN 5-325 MG TABLET PO PRN (23:09)
[2016-11-21] MEDS: ASPIRIN/DIPYRIDAMOLE 25-200 MG 1 CAP.SR CPMP.12HR PO SCH (23:09)
[2016-11-21] MEDS: ATORVASTATIN CALCIUM 20 MG TABLET PO SCH (23:10)
[2016-11-22] MEDS: ACETAMINOPHEN 325 MG TABLET PO PRN (01:35)
[2016-11-22] MEDS: GABAPENTIN 300 MG CAPSULE PO SCH ×3 (05:04→21:59)
[2016-11-22] MEDS: HYDROCODONE/ACETAMINOPHEN 5-325 MG TABLET PO PRN ×3 (05:04→21:59)
[2016-11-22] MEDS: NORMAL SALINE 1000 ML 1,000 ML IV PRN (05:07)
[2016-11-22 09:22] LABS: HEMATOCRIT 30.4 % (36.0-47.0); HEMOGLOBIN 9.8 g/dL (12.0-15.5); MEAN CORPUSCULAR HEMOGLOBIN 32.3 pg (27.0-33.4); MEAN CORPUSCULAR HGB CONC 32.2 g/dL (32.0-36.0); MEAN CORPUSCULAR VOLUME 100 fl (80-97); RED BLOOD COUNT 3.03 10^6/uL (3.72-5.28); RED CELL DISTRIBUTION WIDTH 14.7 % (11.5-14.0); WHITE BLOOD COUNT 6.6 10^3/uL (4.0-10.5)
[2016-11-22] MEDS: ASPIRIN/DIPYRIDAMOLE 25-200 MG 1 CAP.SR CPMP.12HR PO SCH ×2 (09:43→21:59)
[2016-11-22] MEDS: LOSARTAN POTASSIUM 50 MG TABLET PO SCH (09:43)
[2016-11-22] MEDS: ENOXAPARIN SODIUM INJ 30 MG/0.3 ML DISP.SYRIN SUBCUT SCH (09:43)
[2016-11-22] MEDS ORDERED: ENOXAPARIN SODIUM INJ 40 MG/0.4 ML DISP.SYRIN SUBCUT SCH (10:00)
--- NOTE | 2016-11-22 12:23 | Physician Advisory Note ---
Physician Advisor ProgressNote .: Pursuant to the plan for [facility], I have reviewed the medical record for this patient. Physician Advisor Statement: Nice documentation of type of acute ischemic CVA. Possible documentation opportunities if attending agrees: 1. "Medical necessity" - 11/21 progress note states pt was brought in for cerebellar CVA on a prior day, but how was she doing THAT day? In what ways was she not back to baseline? Or was she back to baseline already & needing to go home? What made her still need to be in hospital that day? - Please address same points for each day in hospital as well. (see below) 2. "Acute hyponatremia, likely due to intravascular volume depletion" As always, if concerned about any unstable VS or abnormal labs, please comment on them & note what doing about them, & please document each day the potential clinical problems you are concerned could occur if pt not kept in hospital for tx at this time. Discussion: Pt w/underlying HTN was initially hypotensive & tachycardic at BP 91/6 & 91 HR, dropping BP as low as 87/57 w/HR 94 early on the first day. Cr was 1.99, w/previous baseline Cr of 1.18. Na was 133.5. Pt having Cr persistently >> baseline of 1.18, & persistent acute hyponatemia ( if that concerns attg & is tx'd), + ongoing significant neuro deficits should support status change. Thanks for your help with documentation accuracy/specificity improvement! Phuong Mac MD [facility] Physician Advisor, Fellow of Hospital Medicine
[2016-11-22 15:57] LABS: APPEARANCE,URINE CLEAR; BILIRUBIN,URINE NEGATIVE (NEGATIVE); GLUCOSE, URINE NEGATIVE (NEGATIVE); KETONES,URINE NEGATIVE (NEGATIVE); LEUKOCYTE ESTERASE,URINE NEGATIVE (NEGATIVE); NITRITE,URINE NEGATIVE (NEGATIVE); PROTEIN,URINE NEGATIVE (NEGATIVE); URINE SPECIFIC GRAVITY 1.005; UROBILINOGEN,URINE NEGATIVE mg/dL (<2.0)
[2016-11-22 17:03] LABS: BLOOD UREA NITROGEN 11 mg/dL (7-20); CALCIUM 9.7 mg/dL (8.4-10.2); GLUCOSE 137 mg/dL (75-110)
[2016-11-22 17:04] LABS: ANION GAP 7 (5-19); CARBON DIOXIDE 24 mmol/L (22-30); CHLORIDE 104 mmol/L (98-107); CREATININE RESULT 1.17 mg/dL (0.52-1.25); POTASSIUM 4.4 mmol/L (3.6-5.0); SODIUM 135.2 mmol/L (137-145)
[2016-11-22 17:05] LABS: CHOLESTEROL 187.38 mg/dL (0-200); DIRECT LDL 95 mg/dL (<100); Direct HDL 55 mg/dL (>40); TRIGLYCERIDES 112 mg/dL (<150); VLDL CHOLESTEROL 22.4 mg/dL (10-31)
[2016-11-22 17:06] LABS: THYROID STIMULATING HORMONE 1.43 uIU/mL (0.47-4.68)
--- NOTE | 2016-11-22 20:30 | PDOC DISCHARGE SUMMARY ---
General - Admit/Disc Date/PCP Admission Date/Primary Care Provider: 11/22/16 13:54 Discharge Date: 11/23/16 - Discharge Diagnosis (1) Acute ischemic vertebrobasilar artery cerebellar stroke Is this a current diagnosis for this admission?: Yes (2) Hypotension Is this a current diagnosis for this admission?: Yes (3) Acute kidney injury Is this a current diagnosis for this admission?: Yes - Additional Information Resuscitation Status: Full Code Discharge Activity: Activity As Tolerated Home Medications: Aspirin [Aspirin 81 mg Chewable Tablet] 81 mg PO DAILY 11/20/16 Mirtazapine 45 mg PO QHS 11/20/16 Paroxetine HCl [Paxil] 60 mg PO QAM 11/20/16 Pramipexole Di-HCl [Pramipexole Dihydrochloride] 0.125 mg PO QHS 11/20/16 Acetaminophen [Tylenol 325 mg Tablet] 650 mg PO Q6HP PRN #0 tablet 11/22/16 Aspirin/Dipyridamole [Aggrenox 25 mg/200 mg Capsule SA] 1 cap.sr PO Q12 #60 cpmp.12hr 11/22/16 Atorvastatin Calcium [Lipitor 20 mg Tablet] 20 mg PO QHS #90 tablet 11/22/16 Losartan Potassium [Cozaar 50 mg Tablet] 50 mg PO DAILY #90 tablet 11/22/16 History of Present Illness History of Present Illness: JOCELYN KIM is a 66 year old female, she came to the emergency room because of loss of consciousness ,she was accompanied by family member to the emergency room, the history was that she had episode of loss of consciousness she was getting out of the car when I saw patient on the floor, she stated that she had episode of vertigo with associated gait disturbance, she could not hold still, she was very dizzy. The presentation is consistent with cerebellar stroke, MRI of the brain was ordered it showed acute infarction in the left cerebellum approximately 1.3 cm in greatest dimension at the posterior margin. There was associated low blood pressure with acute kidney injury Hospital Course Hospital Course: Patient was admitted when she presented with acute vertigo associated with gait disturbance consistent with cerebellar stroke. MRI brain was done and confirmed left cerebral stroke . She also had a low blood pressure with acute kidney injury, with fluid therapy there was normalization of kidney function. Physical Exam Vital Signs: Temp Pulse Resp BP Pulse Ox 98.0 F 83 18 111/96 H 97 11/22/16 16:37 11/22/16 17:00 11/22/16 17:00 11/22/16 17:00 11/22/16 17:00 Intake & Output 11/21/16 11/22/16 11/23/16 06:59 06:59 06:59 Intake Total 1404 Output Total 2100 Balance -696 General appearance: PRESENT: no acute distress Eye exam: PRESENT: PERRLA Respiratory exam: PRESENT: clear to auscultation courtney Cardiovascular exam: PRESENT: +S1, +S2 GI/Abdominal exam: PRESENT: soft Neurological exam: PRESENT: alert, CN II-XII grossly intact Results Laboratory Results: 11/22/16 14:13 Troponin I 0.038 Impressions: Cervical Spine CT 11/19/16 00:00 IMPRESSION: NO ACUTE OSSEOUS ABNORMALITY. ATHEROSCLEROTIC DISEASE. Chest X-Ray 11/19/16 18:58 IMPRESSION: NO ACUTE RADIOGRAPHIC FINDING IN THE CHEST. Head CT 11/19/16 18:58 IMPRESSION: MILD CHRONIC CHANGES OF ATROPHY AND MICROVASCULAR ISCHEMIA. NO CT EVIDENCE OF ACUTE ISCHEMIA, HEMORRHAGE, OR MASS LESION. Head MRI 11/20/16 00:00 IMPRESSION: Positive for acute or sub-acute infarction in the left cerebellum, approximately 1.3 cm in greatest dimension at the posterior margin. Renal Ultrasound 11/20/16 00:00 IMPRESSION: No hydronephrosis. Brain MRI with MRA 11/21/16 00:00 IMPRESSION: NORMAL MRA OF THE [place]IM [place] OF [place]. Carotid Doppler Study 11/22/16 00:00 IMPRESSION: NO HEMODYNAMICALLY SIGNIFICANT STENOSIS. Qualifiers VTE patient discharged on overlapping Therapy?: Yes
[2016-11-22] MEDS: ATORVASTATIN CALCIUM 20 MG TABLET PO SCH (21:58)
[2016-11-23] MEDS: GABAPENTIN 300 MG CAPSULE PO SCH (05:24)
[2016-11-23] MEDS: HYDROCODONE/ACETAMINOPHEN 5-325 MG TABLET PO PRN (05:24)
[2016-11-23] MEDS: ENOXAPARIN SODIUM INJ 30 MG/0.3 ML DISP.SYRIN SUBCUT SCH (07:57)
[2016-11-23 08:42] VITALS: BP 145/86
[2016-11-23] MEDS: ASPIRIN/DIPYRIDAMOLE 25-200 MG 1 CAP.SR CPMP.12HR PO SCH (09:50)
[2016-11-23] MEDS: LOSARTAN POTASSIUM 50 MG TABLET PO SCH (09:50)
== END 2016-11-23 12:34 | disposition home or self-care (01) | DRG 65 ==
LOC: ER 18:58 → EH 22:17 → UNDOADMOB 22:17 → 4N 11-20 00:40 → EH 11-20 00:40 → 4N 11-20 03:25 → EH 11-20 03:25 → UNDOADMOB 11-20 03:25 → 4N 11-20 23:24 → 3S 11-20 23:24 → OBSVTOIN 11-22 13:54
PROVIDERS: ADMIT Internal Medicine; ATTEND Internal Medicine
DX: I63.542 Cerebral infarction due to unspecified occlusion or stenosis of left cerebellar artery (principal); N17.9 Acute kidney failure, unspecified; I95.9 Hypotension, unspecified; I10 Essential (primary) hypertension; K21.9 Gastro-esophageal reflux disease without esophagitis; F31.9 Bipolar disorder, unspecified; F03.90 Unspecified dementia, unspecified severity, without behavioral disturbance, psychotic disturbance, mood disturbance, and anxiety; S00.03XA Contusion of scalp, initial encounter; W18.39XA Other fall on same level, initial encounter; Y93.9 Activity, unspecified; Y92.9 Unspecified place or not applicable
CPT/HCPCS: 36415; 70450; 70544; 70551; 71010; 72125; 76770; 80048; 80053; 80061; 81001; 82550; 82553; 84439; 84443; 84484; 85025; 85027; 85610; 85730; 93005; 93010; 93306; 93880; 96361; 96374; 96375; 99291; G0378; G8978-GP; G8979-GP; G8980-GP; G8987-GO; G8988-GO; G8989-GO; J1650; J2270; J2405; J3490; J7030

== ENCOUNTER 2017-04-27 18:02 | Emergency (ER) | payer MEDICARE ==
[2017-04-27] MEDS ORDERED: ASPIRIN 81 MG TABLET, CHEWABLE PO ONE (18:45)
--- NOTE | 2017-04-27 18:48 | ER Document Report ---
ED Medical Screen (RME) - General Chief Complaint: Abdominal Pain Stated Complaint: ABDOMINAL PAIN Time Seen by Provider: 04/27/17 18:43 Mode of Arrival: Wheelchair Information source: Patient Notes: pt presents with c/o chest pain that started on that radiates to her LUQ. Reports sharp pain that comes and goes in her abdomen. Denies f/n/v/, hurts when she tries to swallow, trying to burp but feels like she will vomit. Reports thoracic pain a few days ago, denies SOB, denies CAD. TRAVEL OUTSIDE OF THE [place] IN LAST 30 DAYS: No - Related Data Allergies/Adverse Reactions: carbamazepine [From Tegretol] Allergy (Intermediate, Verified 04/27/17 18:08) swelling/itching ceftriaxone [From Rocephin] Allergy (Intermediate, Verified 04/27/17 18:08) swelling/itching iodine Allergy (Intermediate, Verified 04/27/17 18:08) swelling/itching Past Medical History - Past Medical History Cardiac Medical History: Reports: Hx Hypertension Denies: Hx Congestive Heart Failure, Hx Heart Attack Pulmonary Medical History: Denies: Hx Asthma, Hx Bronchitis, Hx COPD, Hx Pneumonia, Hx Tuberculosis Neurological Medical History: Denies: Hx Seizures Renal/ Medical History: Denies: Hx End Stage Renal Disease, Hx Kidney Stones, Hx Peritoneal Dialysis GI Medical History: Reports: Hx Gastroesophageal Reflux Disease. Denies: Hx Cirrhosis, Hx Ulcer Musculoskeltal Medical History: Reports Hx Arthritis - all over (not sure if rheumatiod), Denies Hx Multiple Sclerosis Psychiatric Medical History: Reports: Hx Bipolar Disorder, Hx Dementia, Hx Depression Denies: Hx Schizophrenia - Immunizations Hx Diphtheria, Pertussis, Tetanus Vaccination: Yes Physical Exam - Vital signs Vitals: Temp Pulse Resp BP Pulse Ox 98.2 F 76 20 132/77 H 96 04/27/17 18:09 04/27/17 18:09 04/27/17 18:09 04/27/17 18:09 04/27/17 18:09 Course - Vital Signs Vital signs: Temp Pulse Resp BP Pulse Ox 98.2 F 76 20 132/77 H 96 04/27/17 18:09 04/27/17 18:09 04/27/17 18:09 04/27/17 18:09 04/27/17 18:09
[2017-04-27 19:24] LABS: ABSOLUTE EOSINOPHILS # (AUTO) 0.2 10^3/uL (0.0-0.6); ABSOLUTE LYMPHOCYTES (AUTO) 1.9 10^3/uL (0.5-4.7); ABSOLUTE MONOCYTES (AUTO) 0.7 10^3/uL (0.1-1.4); ABSOLUTE NEUT (AUTO) 4.5 10^3/uL (1.7-8.2); BASOPHILS % (AUTO) 0.5 % (0-2); EOSINOPHILS % (AUTO) 2.1 % (0-6); HEMATOCRIT 36.2 % (36.0-47.0); HEMOGLOBIN 12.2 g/dL (12.0-15.5); HGB HCT DIFFERENCE 0.4; LYMPHOCYTES % (AUTO) 26.1 % (13-45); MEAN CORPUSCULAR HEMOGLOBIN 34.2 pg (27.0-33.4); MEAN CORPUSCULAR HGB CONC 33.7 g/dL (32.0-36.0); MEAN CORPUSCULAR VOLUME 102 fl (80-97); RED BLOOD COUNT 3.56 10^6/uL (3.72-5.28); RED CELL DISTRIBUTION WIDTH 14.1 % (11.5-14.0); SEGMENTED NEUTROPHILS % (AUTO) 61.3 % (42-78); WHITE BLOOD COUNT 7.3 10^3/uL (4.0-10.5)
[2017-04-27 19:43] LABS: ALANINE AMINOTRANSFERASE 49 U/L (9-52); ALBUMIN 4.4 g/dL (3.5-5.0); ALKALINE PHOSPHATASE 144 U/L (38-126); ANION GAP 15 (5-19); ASPARTATE AMINO TRANSFERASE 37 U/L (14-36); BILIRUBIN,DIRECT 0.4 mg/dL (0.0-0.4); BILIRUBIN,TOTAL 0.5 mg/dL (0.2-1.3); BLOOD UREA NITROGEN 17 mg/dL (7-20); CALCIUM 10.9 mg/dL (8.4-10.2); CARBON DIOXIDE 22 mmol/L (22-30); CHLORIDE 100 mmol/L (98-107); CREATINE KINASE 53 U/L (30-135); CREATININE RESULT 1.27 mg/dL (0.52-1.25); GLUCOSE 118 mg/dL (75-110); POTASSIUM 4.6 mmol/L (3.6-5.0); SODIUM 137.3 mmol/L (137-145); TOTAL PROTEIN 7.4 g/dL (6.3-8.2)
--- NOTE | 2017-04-27 19:52 | RADIOLOGY REPORT (SQ) ---
EXAM DESCRIPTION: CHEST PA/LAT COMPLETED DATE/TIME: 04/27/2017 7:18 pm REASON FOR STUDY: chest pain COMPARISON: None. EXAM PARAMETERS: NUMBER OF VIEWS: two views TECHNIQUE: Digital Frontal and Lateral radiographic views of the chest acquired. RADIATION DOSE: NA LIMITATIONS: none FINDINGS: LUNGS AND PLEURA: No opacities, masses or pneumothorax. No pleural effusion. MEDIASTINUM AND HILAR STRUCTURES: No masses or contour abnormalities. HEART AND VASCULAR STRUCTURES: Heart normal size. No evidence for failure. BONES: No acute findings. HARDWARE: None in the chest. OTHER: No other significant finding. IMPRESSION: NO SIGNIFICANT RADIOGRAPHIC FINDING IN THE CHEST. TECHNICAL DOCUMENTATION: JOB ID: [id number] [employer]- All Rights Reserved
[2017-04-27 19:55] LABS: CREATINE KINASE MB 0.82 ng/mL (<4.55); TROPONIN I 0.017 ng/mL
[2017-04-27 19:56] LABS: APPEARANCE,URINE TURBID; BILIRUBIN,URINE NEGATIVE (NEGATIVE); GLUCOSE, URINE NEGATIVE (NEGATIVE); KETONES,URINE NEGATIVE (NEGATIVE); LEUKOCYTE ESTERASE,URINE LARGE (NEGATIVE); NITRITE,URINE POSITIVE (NEGATIVE); PROTEIN,URINE NEGATIVE (NEGATIVE); URINE SPECIFIC GRAVITY 1.018; UROBILINOGEN,URINE NEGATIVE mg/dL (<2.0)
[2017-04-27] MEDS ORDERED: MORPHINE SULFATE 10 MG/ML INJ IV ONE (21:41)
[2017-04-27] MEDS ORDERED: ONDANSETRON HCL INJ/PF 4 MG/2 ML SDV IV ONE (21:41)
[2017-04-27] MEDS ORDERED: CIPROFLOXACIN 400 MG/D5W RTU 400 MG/200 ML RTUPB IV ONE (21:42)
--- NOTE | 2017-04-27 21:44 | ER Document Report ---
ED General - General Chief Complaint: Abdominal Pain Stated Complaint: ABDOMINAL PAIN Time Seen by Provider: 04/27/17 18:43 Mode of Arrival: Wheelchair Notes: Patient is a 66-year-old female comes emergency department for chief complaint of chest pain/abdominal pain (she points to her epigastric and upper abdominal areas) she states she has had this for several days now, she states that it is much worse when she eats, she reports occasional nausea. She also reports occasional difficulty with urination and intermittent flank pain on both sides. She denies fever or chills. She reports normal bowel movements. She has had an appendectomy, hysterectomy, past medical history of anxiety, migraines, and chronic back pain on hydrocodone. TRAVEL OUTSIDE OF THE [place] IN LAST 30 DAYS: No - Related Data Allergies/Adverse Reactions: carbamazepine [From Tegretol] Allergy (Intermediate, Verified 04/27/17 18:08) swelling/itching ceftriaxone [From Rocephin] Allergy (Intermediate, Verified 04/27/17 18:08) swelling/itching iodine Allergy (Intermediate, Verified 04/27/17 18:08) swelling/itching Past Medical History - General Information source: Patient - Social History Smoking Status: Former Smoker Chew tobacco use (# tins/day): No Frequency of alcohol use: None Drug Abuse: None Lives with: Family Family History: Reviewed & Not Pertinent - Past Medical History Cardiac Medical History: Reports: Hx Hypertension Denies: Hx Congestive Heart Failure, Hx Heart Attack Pulmonary Medical History: Denies: Hx Asthma, Hx Bronchitis, Hx COPD, Hx Pneumonia, Hx Tuberculosis Neurological Medical History: Denies: Hx Seizures Renal/ Medical History: Denies: Hx End Stage Renal Disease, Hx Kidney Stones, Hx Peritoneal Dialysis GI Medical History: Reports: Hx Gastroesophageal Reflux Disease. Denies: Hx Cirrhosis, Hx Ulcer Musculoskeltal Medical History: Reports Hx Arthritis - all over (not sure if rheumatiod), Denies Hx Multiple Sclerosis Psychiatric Medical History: Reports: Hx Bipolar Disorder, Hx Dementia, Hx Depression Denies: Hx Schizophrenia Past Surgical History: Reports: Hx Hysterectomy - Immunizations Hx Diphtheria, Pertussis, Tetanus Vaccination: Yes Review of Systems - Review of Systems Constitutional: No symptoms reported EENT: No symptoms reported Cardiovascular: No symptoms reported Respiratory: No symptoms reported Gastrointestinal: See HPI Genitourinary: No symptoms reported Female Genitourinary: No symptoms reported Musculoskeletal: No symptoms reported Skin: No symptoms reported Hematologic/Lymphatic: No symptoms reported Neurological/Psychological: No symptoms reported Physical Exam - Vital signs Vitals: Temp Pulse Resp BP Pulse Ox 98.2 F 76 20 132/77 H 96 04/27/17 18:09 04/27/17 18:09 04/27/17 18:09 04/27/17 18:09 04/27/17 18:09 Interpretation: Normal - General General appearance: Appears well, Alert In distress: None - HEENT Head: Normocephalic, Atraumatic Eyes: Normal Pupils: PERRL - Respiratory Respiratory status: No respiratory distress Chest status: Nontender Breath sounds: Normal Chest palpation: Normal - Cardiovascular Rhythm: Regular Heart sounds: Normal auscultation Murmur: No - Abdominal Inspection: Normal Distension: No distension Bowel sounds: Normal Tenderness: Tender - Mild generalized upper abdominal tenderness without guarding, there is also some suprapubic tenderness, no rigidity, no rebound tenderness Organomegaly: No organomegaly - Back Back: Normal, Nontender. No: Tender, CVA tenderness - Extremities General upper extremity: Normal inspection, Nontender, Normal color, Normal ROM , Normal temperature General lower extremity: Normal inspection, Nontender, Normal color, Normal ROM , Normal temperature, Normal weight bearing. No: Jose L's sign - Neurological Neuro grossly intact: Yes Cognition: Normal Orientation: AAOx4 Maureen Coma Scale Eye Opening: Spontaneous Maureen Coma Scale Verbal: Oriented Maureen Coma Scale Motor: Obeys Commands Maureen Coma Scale Total: 15 Speech: Normal Motor strength normal: LUE, RUE, LLE, RLE Sensory: Normal - Psychological Associated symptoms: Normal affect, Normal mood - Skin Skin Temperature: Warm Skin Moisture: Dry Skin Color: Normal Course - Re-evaluation Re-evalutation: Patient with epigastric pain on exam although this is not severe, she does not appear to be in any distress, vital signs unremarkable. Because of upper abdominal pain reported and on exam ultrasound was performed but shows no acute abnormalities, no evidence of cholecystitis, gallbladder obstruction, ductal abnormality. CBC, chemistry unremarkable, no leukocytosis, normal bilirubin, unremarkable liver enzymes. EKG and troponin were obtained initially along with chest x-ray by triage based on her reported symptoms, these do not show any acute abnormalities after several days of pain. Patient does have a urinary tract infection, she was given initial antibiotics for this. Reevaluated patient, she states she actually has not had a bowel movement in 4 days, she is currently on opiate prescriptions, she is not on a stool softener. I did discuss CAT scan evaluation based on her symptoms and her negative workup of upper abdominal pain so far, she declines, she states she feels much better, she states that she would like to be treated symptomatically and for urinary tract infection and to follow-up outpatient. I did discuss return precautions including worsening pain, vomiting, fever, etc., patient states understanding and that she will return if she develops any of these. also states agreement with this plan. - Vital Signs Vital signs: Temp Pulse Resp BP Pulse Ox 98 F 74 18 123/73 95 04/28/17 00:33 04/28/17 00:33 04/28/17 00:33 04/28/17 00:33 04/28/17 00:33 - Laboratory Result Diagrams: 04/27/17 19:04 04/27/17 19:04 Laboratory results interpreted by me: 04/27/17 04/27/17 04/27/17 19:04 19:04 19:04 RBC 3.56 L MCV 102 H MCH 34.2 H RDW 14.1 H Creatinine 1.27 H Est GFR ( Amer) 51 L Est GFR (Non-Af Amer) 42 L Glucose 118 H Calcium 10.9 H AST 37 H Alkaline Phosphatase 144 H Urine Blood SMALL H Urine Nitrite POSITIVE H Ur Leukocyte Esterase LARGE H Discharge - Discharge Clinical Impression: Abdominal pain Qualifiers: Abdominal location: generalized Qualified Code(s): R10.84 - Generalized abdominal pain Urinary tract infection Qualifiers: Urinary tract infection type: site unspecified Hematuria presence: without hematuria Qualified Code(s): N39.0 - Urinary tract infection, site not specified Condition: Stable Disposition: HOME, SELF-CARE Additional Instructions: Your workup shows a urinary tract infection but no other specific abnormalities at this time. Take the medications for stool softener and your upper abdomen, take the Cipro antibiotic, we have a culture of the urine growing in our lab. Follow-up with your primary care provider. Return immediately to the emergency department if you worsen including fever, vomiting, return or worsening pain, or any other concerning symptoms. Prescriptions: Ciprofloxacin HCl [Cipro 500 mg Tablet] 500 mg PO BID #10 tablet Docusate Sodium [Colace 100 mg Capsule] 100 mg PO ASDIR PRN #30 capsule PRN Reason: Promethazine HCl [Phenergan 25 mg Tablet] 1 - 2 tab PO Q6H PRN #20 tablet PRN Reason: Ranitidine HCl [Zantac 150 mg Tablet] 150 mg PO BID #30 tablet
--- NOTE | 2017-04-27 23:19 | RADIOLOGY REPORT (SQ) ---
EXAM DESCRIPTION: U/S ABDOMEN LIMITED W/O DOP COMPLETED DATE/TIME: 04/27/2017 10:59 pm REASON FOR STUDY: upper abd pain on exam COMPARISON: None. TECHNIQUE: Dynamic and static grayscale images acquired of the abdomen and recorded on PACS. Additio nal selected color Doppler and spectral images recorded. LIMITATIONS: Body habitus results in poor acoustic penetration. FINDINGS: PANCREAS: No masses. Visualized pancreatic duct normal caliber. LIVER: Diffusely increased echogenicity consistent with fatty infiltration. LIVER VASCULATURE: Normal directional flow of the main portal vein and hepatic veins. GALLBLADDER: No stones. Normal wall thickness. No pericholecystic fluid. ULTRASOUND-DETECTED GUPTA'S SIGN: Negative. INTRAHEPATIC DUCTS AND COMMON DUCT: CBD and intrahepatic ducts normal caliber. No filling defects. INFERIOR VENA CAVA: Normal flow. AORTA: No aneurysm. RIGHT KIDNEY: Normal size. Normal echogenicity. No solid or suspicious masses. No hydronephrosis. No calcifications. PERITONEAL AND RIGHT PLEURAL SPACE: No ascites or effusions. OTHER: No other significant findings. IMPRESSION: NORMAL RIGHT UPPER QUADRANT ULTRASOUND. TECHNICAL DOCUMENTATION: JOB ID: [id number] [employer]- All Rights Reserved
[2017-04-27] MEDS ORDERED: HYDROMORPHONE HCL INJ/PF 2 MG/ML AMPULE IV ONE (23:35)
[2017-04-28 00:34] VITALS: BP 123/73
--- NOTE | 2017-04-28 09:20 | EKG REPORT ---
SEVERITY:- NORMAL ECG - SINUS RHYTHM : Confirmed by: Veda Salas MD 28-Apr-2017 09:19:52
== END 2017-04-28 00:34 | disposition home or self-care (01) ==
LOC: ER 18:02
DX: N39.0 Urinary tract infection, site not specified (principal); R10.84 Generalized abdominal pain; R07.9 Chest pain, unspecified; R11.0 Nausea; Z87.891 Personal history of nicotine dependence
CPT/HCPCS: 93005; 99284; 96375; 96365; 36415; 87086; 82553; 82550; 85025; 87088; 80053; 81001; 84484; 87186; 71020; 76705; 93010; A9270; J2270; J1170; J2405; J0744

== ENCOUNTER → 2018-05-06 | Outpatient (CLI) | payer MEDICARE ==
--- NOTE | 2018-05-06 11:53 | RADIOLOGY REPORT (SQ) ---
EXAM DESCRIPTION: MRI HEAD COMBO COMPLETED DATE/TIME: 05/06/2018 11:28 am REASON FOR STUDY: R41.3 OTHER AMNESIA/R51 HEADACHE R41.3 OTHER AMNESIA COMPARISON: 11/20/2016 TECHNIQUE: Multiplanar imaging includes noncontrasted T1, T2, FLAIR, and Diffusion with ADC map seq uences. Contrast enhanced T1 images. Images stored on PACS. CONTRAST TYPE AND DOSE: 15 mL Dotarem. RENAL FUNCTION: Creatinine 1.2, GFR 47 LIMITATIONS: None. FINDINGS: ANATOMY: No anomalies. Normal vascular flow voids. Pituitary fossa normal. CSF SPACES: Normal size and contour. No hemorrhage. CEREBRUM: A few high-signal intensity lesions scattered throughout the white matter on FLAIR imaging with distribution suggesting chronic microvascular ischemic change. Sulci and gyri normal in size and contour. No evidence of hemorrhage, mass or extraaxial fluid collection. No enhancing lesions. 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 No acute findings. DIFFUSION: Negative for acute or subacute infarction. ORBITS: No masses. Globes normal. PARANASAL SINUSES: No fluid levels. Mucosa normal. OTHER: No other significant finding. IMPRESSION: NO ENHANCING LESIONS. MINIMAL MICROVASCULAR ISCHEMIC CHANGE. OTHERWISE NORMAL STUDY. EVIDENCE OF ACUTE STROKE: NO. TECHNICAL DOCUMENTATION: JOB ID: [id number] [employer]- All Rights Reserved Reading location - IP/workstation name: [email or web address]
--- NOTE | 2018-05-06 11:54 | RADIOLOGY REPORT (SQ) ---
EXAM DESCRIPTION: MRI CERVICAL SPINE COMBO COMPLETED DATE/TIME: 05/06/2018 11:28 am REASON FOR STUDY: R41.3 OTHER AMNESIA/R51 HEADACHE R41.3 OTHER AMNESIA COMPARISON: 11/19/2017 TECHNIQUE: Sagittal and Axial imaging includes T1, T2, STIR and gradient echo sequences. T1 post leandra olinium sequences. CONTRAST TYPE AND DOSE: 15 mL Dotarem. RENAL FUNCTION: Creatinine 1.2, GFR 47 LIMITATIONS: None. FINDINGS: ALIGNMENT: Normal. VERTEBRAE: Intact. BONE MARROW: Normal. No marrow replacement or reactive changes. DISCS: Normal. No significant abnormal signal or loss of height. HARDWARE: None in the spine. CORD AND BASE OF BRAIN: Normal in size and signal intensity. SOFT TISSUES: No soft tissue masses. C1-C2: No significant spinal stenosis. C2-C3: No significant spinal stenosis or exit foraminal stenosis. C3-C4: No significant spinal stenosis or exit foraminal stenosis. C4-C5: No significant spinal stenosis or exit foraminal stenosis. C5-C6: No significant spinal stenosis or exit foraminal stenosis. C6-C7: No significant spinal stenosis or exit foraminal stenosis. C7-T1: No significant spinal stenosis or exit foraminal stenosis. UPPER THORACIC: Incompletely imaged. No significant spinal stenosis or exit foraminal stenosis. ENHANCEMENT: No abnormal enhancement. OTHER: No other significant finding. IMPRESSION: NORMAL MRI CERVICAL SPINE. COMMENT: None. TECHNICAL DOCUMENTATION: JOB ID: [id number] [facility]- All Rights Reserved Reading location - IP/workstation name: [email or web address]
== END ==
LOC: RAD 09:14
PROVIDERS: ATTEND Student in an Organized Health Care Education/Training Program
DX: M54.9 Dorsalgia, unspecified (principal); R41.3 Other amnesia; R53.1 Weakness; R51 Headache
CPT/HCPCS: 82565; 70553; 72156; A9576

== ENCOUNTER 2019-03-19 00:01 | Inpatient (IN) | payer MEDICARE ==
[2019-03-19] MEDS ORDERED: NORMAL SALINE 1000 ML 1,000 ML IV ONE ×3 (00:22→01:51)
--- NOTE | 2019-03-19 00:32 | ER Document Report ---
ED General - General Chief Complaint: Nausea/Vomiting/Diarrhea Stated Complaint: VOMITTING Time Seen by Provider: 03/19/19 00:22 Primary Care Provider: PRATIMA PARKER DO [NO LOCAL MD] - Follow up as needed TRAVEL OUTSIDE OF THE [place] IN LAST 30 DAYS: No - HPI Notes: Patient is a 68-year-old female presents to the emergency department for evaluation. The patient's is my primary historian. Evidently the patient started vomiting on Saturday evening. She had a short-lived fever. According to the she started talking "out of her head" earlier today so she presents to the emergency department for evaluation. Patient denies any pain at this time. She denies any diarrhea. - Related Data Allergies/Adverse Reactions: carbamazepine [From Tegretol] Allergy (Intermediate, Verified 04/27/17 18:08) swelling/itching ceftriaxone [From Rocephin] Allergy (Intermediate, Verified 04/27/17 18:08) swelling/itching iodine Allergy (Intermediate, Verified 04/27/17 18:08) swelling/itching Past Medical History - General Information source: Patient, Relative - Social History Smoking Status: Current Every Day Smoker - Vaping Family History: Reviewed & Not Pertinent - Past Medical History Cardiac Medical History: Reports: Hx Hypertension Denies: Hx Congestive Heart Failure, Hx Heart Attack Pulmonary Medical History: Denies: Hx Asthma, Hx Bronchitis, Hx COPD, Hx Pneumonia, Hx Tuberculosis Neurological Medical History: Denies: Hx Seizures Renal/ Medical History: Denies: Hx End Stage Renal Disease, Hx Kidney Stones, Hx Peritoneal Dialysis GI Medical History: Reports: Hx Gastroesophageal Reflux Disease. Denies: Hx Cirrhosis, Hx Ulcer Musculoskeletal Medical History: Reports Hx Arthritis - all over (not sure if rheumatiod), Denies Hx Multiple Sclerosis Psychiatric Medical History: Reports: Hx Bipolar Disorder, Hx Dementia, Hx Depression Denies: Hx Schizophrenia Past Surgical History: Reports: Hx Hysterectomy - Immunizations Hx Diphtheria, Pertussis, Tetanus Vaccination: Yes Review of Systems - Review of Systems Constitutional: See HPI EENT: No symptoms reported Cardiovascular: No symptoms reported Respiratory: No symptoms reported Gastrointestinal: See HPI Genitourinary: No symptoms reported Musculoskeletal: No symptoms reported Skin: No symptoms reported Neurological/Psychological: See HPI Physical Exam - Vital signs Vitals: Temp Pulse Resp BP Pulse Ox 98.5 F 106 H 19 81/64 L 86 L 09/12/19 00:10 03/19/19 00:10 03/19/19 00:10 03/19/19 00:10 03/19/19 00:10 - Notes Notes: This is a frail-appearing 68-year-old female who appears her stated age, mild to moderate distress. GCS of 13. Vital signs reviewed, please refer to chart. Head is normocephalic, atraumatic. Pupils equal round, reactive to light. Oral mucosa is moist. Neck is supple without meningismus. Heart is regular rate and rhythm. Lungs reveal diminished breath sounds at bilateral bases. Abdomen is soft, nontender, normoactive bowel sounds throughout. Extremities without cyanosis, clubbing. Posterior calves are nontender. Peripheral pulses are equal. Skin is warm and dry. Patient is drowsy, but arouses to verbal stimuli. She is able to intermittently answer questions appropriately. She moves all fortunately spontaneously. No gross facial asymmetry. Course - Re-evaluation Re-evalutation: 03/19/19 00:30 Presents emergency department for evaluation. She had significant vomiting. On arrival she is significantly hypotensive, hypoxic. He is placed on oxygen, given IV fluids. Because of this as well as history concerning for infection, sepsis protocol was triggered. I did go ahead and add a troponin as she was complaining of chest pain earlier. Patient had large-bore IVs established peripherally, was given 2 L of IV fluid. We will continue to monitor. 03/19/19 01:50 Patient's blood pressure responded well to 2 L of fluid. 1/3 L was ordered at 200 cc/h. Laboratory investigations failed to reveal any significant leukocytosis. Her chemistry was hemolyzed, has currently been redrawn. She was found to have pneumonia, IV Levaquin ordered. We will continue to monitor. 03/19/19 02:46 Second chemistry was found to be hemolyzed as well. I did go ahead and decide to do a femoral stick. Ultrasound guidance was used to clearly identify the [facility] femoral vein. Using an 18-gauge needle and direct ultrasound guidance, 20 cc of blood was withdrawn from the right femoral vein. Needle was withdrawn, pressure applied. No significant bleeding or blood loss as a complication. Blood placed in appropriate tubes, sent to lab. 03/19/19 03:54 Patient is found to have severe acute renal failure. She is given IV fluids. She is remained stable. I spoke with Dr. Pérez, he will admit the patient for further care. - Vital Signs Vital signs: Temp Pulse Resp BP Pulse Ox 98.2 F 106 H 13 92/61 L 78 L 03/19/19 03:45 03/19/19 00:10 03/19/19 03:45 03/19/19 03:45 03/19/19 03:29 - Laboratory Result Diagrams: 03/19/19 00:20 03/19/19 02:43 Laboratory results interpreted by me: 03/19/19 03/19/19 00:20 02:43 MCV 98 H Seg Neutrophils % 78.9 H Sodium 131.9 L Chloride 91 L BUN 115 H Creatinine 8.63 H Est GFR ( Amer) 6 L Est GFR (MDRD) Non-Af 5 L AST 74 H Total Protein 5.6 L Albumin 3.0 L - Diagnostic Test Radiology reviewed: Reports reviewed Radiology results interpreted by me: 03/19/19 02:47 Chest X-Ray 03/19/19 00:22 IMPRESSION: Right lower lobar atelectasis/pneumonia. - EKG Interpretation by Me Additional EKG results interpreted by me: 03/19/19 00:31 Sinus mechanism with a rate of 95 bpm. Normal axis and intervals, nonspecific ST changes, but no acute changes concerning for ischemia or infarction. No old studies available for comparison. Discharge - Discharge Clinical Impression: Hypoxia, Acute renal failure Pneumonia Qualifiers: Pneumonia type: due to unspecified organism Laterality: right Lung location: lower lobe of lung Qualified Code(s): J18.1 - Lobar pneumonia, unspecified organism Hypotension Qualifiers: Hypotension type: other hypotension type Qualified Code(s): I95.89 - Other hypotension Sepsis Qualifiers: Acute renal failure type: unspecified Severe sepsis shock status: without septic shock Condition: Stable Disposition: ADMITTED INPATIENT Admitting Provider: Elisa Unit Admitted: IMCU Referrals: PRATIMA PARKER DO [NO LOCAL MD] - Follow up as needed
[2019-03-19 00:40] LABS: ABSOLUTE LYMPHOCYTES (AUTO) 1.3 10^3/uL (0.5-4.7); ABSOLUTE MONOCYTES (AUTO) 0.7 10^3/uL (0.1-1.4); ABSOLUTE NEUT (AUTO) 7.8 10^3/uL (1.7-8.2); BASOPHILS % (AUTO) 0.2 % (0-2); EOSINOPHILS % (AUTO) 0.3 % (0-6); HEMOGLOBIN 13.8 g/dL (12.0-15.5); LYMPHOCYTES % (AUTO) 13.1 % (13-45); MEAN CORPUSCULAR HGB CONC 33.6 g/dL (32.0-36.0); MEAN CORPUSCULAR VOLUME 98 fl (80-97); MONOCYTES % (AUTO) 7.5 % (3-13); PLATELET COUNT 322 10^3/uL (150-450); RED BLOOD COUNT 4.16 10^6/uL (3.72-5.28); RED CELL DISTRIBUTION WIDTH 13.9 % (11.5-14.0); SEGMENTED NEUTROPHILS % (AUTO) 78.9 % (42-78); TOTAL CELLS COUNTED % (AUTO) 100 %; WHITE BLOOD COUNT 9.9 10^3/uL (4.0-10.5)
[2019-03-19 00:47] LABS: INTERNATIONAL RATION (INR) 1.13; PROTHROMBIN TIME 14.6 SEC (11.4-15.4)
[2019-03-19 00:49] LABS: VENOUS BLOOD BASE EXCESS 2.3 mmol/L; VENOUS BLOOD HCO3 29.1 mmol/L (20-32); VENOUS BLOOD PCO2 53.9 mmHg (35-63); VENOUS BLOOD PH 7.35 (7.30-7.42)
--- NOTE | 2019-03-19 01:22 | RADIOLOGY REPORT (SQ) ---
EXAM DESCRIPTION: XR CHEST 1 VIEW COMPLETED DATE/TME: 03/19/2019 00:22 CLINICAL HISTORY: 68 years Female, altered mental status, hypoxia COMPARISON: 04/27/17 NUMBER OF VIEWS/TECHNIQUE: 1/AP FINDINGS: Small bandlike and mild patchy opacity of the right lower lung field. Adequate lung volume, normal cardiac silhouette, and intact bony thorax. IMPRESSION: Right lower lobar atelectasis/pneumonia.
[2019-03-19 01:39] LABS: APPEARANCE,URINE CLEAR; BILIRUBIN,URINE NEGATIVE (NEGATIVE); COLOR,URINE YELLOW; GLUCOSE, URINE NEGATIVE (NEGATIVE); KETONES,URINE NEGATIVE (NEGATIVE); LEUKOCYTE ESTERASE,URINE NEGATIVE (NEGATIVE); NITRITE,URINE NEGATIVE (NEGATIVE); PROTEIN,URINE NEGATIVE (NEGATIVE); URINE SPECIFIC GRAVITY 1.012; UROBILINOGEN,URINE NEGATIVE mg/dL (<2.0)
[2019-03-19] MEDS ORDERED: LEVOFLOXACIN 750 MG/D5W RTU 750 MG/150 ML RTUPB IV ONE (01:49)
[2019-03-19] MEDS ORDERED: MORPHINE SULFATE 10 MG/ML INJ IV ONE (02:47)
[2019-03-19 03:30] LABS: ALKALINE PHOSPHATASE 75 U/L (38-126); ANION GAP 18 (5-19); ASPARTATE AMINO TRANSFERASE 74 U/L (14-36); BILIRUBIN,DIRECT 0.4 mg/dL (0.0-0.4); BILIRUBIN,TOTAL 0.5 mg/dL (0.2-1.3); BLOOD UREA NITROGEN 115 mg/dL (7-20); CALCIUM 8.5 mg/dL (8.4-10.2); CARBON DIOXIDE 23 mmol/L (22-30); CHLORIDE 91 mmol/L (98-107); GLUCOSE 93 mg/dL (75-110); TOTAL PROTEIN 5.6 g/dL (6.3-8.2)
[2019-03-19] MEDS ORDERED: AZTREONAM INJ 1 GM VIAL IV PRN (04:39)
[2019-03-19] MEDS: DOPAMINE HCL/DEXTROSE 5%-WATER 800 MG/250 ML RTUINJ IV PRN ×2 (06:23→08:01)
[2019-03-19] MEDS: AZTREONAM 1 GM in DEXTROSE 5%-WATER 50 ML IV SCH ×3 (06:36→21:53)
[2019-03-19] MEDS: PANTOPRAZOLE SODIUM 40 MG TABLET.DR PO SCH (06:42)
[2019-03-19] MEDS: AZITHROMYCIN 500 MG in DEXTROSE 5%-WATER 250 ML IV SCH (08:03)
[2019-03-19 08:48] LABS: INTERNATIONAL RATION (INR) 1.14; PROTHROMBIN TIME 14.7 SEC (11.4-15.4)
[2019-03-19 08:55] LABS: ARTERIAL BLOOD BASE EXCESS -5.8 mmol/L; ARTERIAL BLOOD H2CO3 1.25 mmol/L (1.05-1.35); ARTERIAL BLOOD HCO3 20.2 mmol/L (20-24); ARTERIAL BLOOD O2 SATURATION 94.8 % (94-98); ARTERIAL BLOOD PCO2 41.5 mmHg (35-45); ARTERIAL BLOOD PH 7.31 (7.35-7.45); ARTERIAL BLOOD TOTAL CO2 21.5 mmol/L (21-25)
[2019-03-19 08:56] LABS: ARTERIAL BLOOD FIO2 28%
--- NOTE | 2019-03-19 09:34 | EKG REPORT ---
SEVERITY:- NORMAL ECG - SINUS RHYTHM : Confirmed by: Veda Salas MD 19-Mar-2019 09:33:11
[2019-03-19] MEDS: NORMAL SALINE 1000 ML 1,000 ML IV PRN ×2 (10:06→17:38)
[2019-03-19] MEDS: ONDANSETRON HCL INJ/PF 4 MG/2 ML SDV IV PRN (17:38)
[2019-03-19 21:02] LABS: ANION GAP 14 (5-19); CALCIUM 9.6 mg/dL (8.4-10.2); CARBON DIOXIDE 22 mmol/L (22-30); CHLORIDE 99 mmol/L (98-107); GLUCOSE 97 mg/dL (75-110); POTASSIUM 5.1 mmol/L (3.6-5.0)
[2019-03-19 21:11] LABS: BLOOD UREA NITROGEN 81 mg/dL (7-20)
[2019-03-19] MEDS: ACETAMINOPHEN 325 MG TABLET PO PRN (21:27)
--- NOTE | 2019-03-19 21:47 | PDOC H&P ---
History of Present Illness Admission Date/PCP: 03/19/19 04:26 History of Present Illness: JOCELYN KIM is a 68 year old female, She came to the emergency room for evaluation, with nausea, vomiting and diarrhea, the history was that she started vomiting on Saturday about 4 days ago, there was also associated fever, she became confused earlier today she was then brought to the emergency room for evaluation when she arrived in the emergency room, the blood pressure recorded was 81/64, She was resuscitated with fluid, fluid therapy was ordered at 200 cc/h the serum creatinine was 8.6, the blood the chest x-ray demonstrated mild patchy opacity of the right lower lung fieldHistory taking was a challenge initially because patient was confused, there was evidence of end organ dysfunction including acute kidney injury, encephalopathy, hypotension consistent with severe sepsis. She was severely vigorously fluid resuscitated she also required dopamine infusion in the emergency room to get the blood pressure to a reasonable level. Past Medical History Cardiac Medical History: Reports: Hypertension GI Medical History: Reports: Gastroesophageal Reflux Disease Musculoskeltal Medical History: Reports: Arthritis - all over (not sure if rheumatiod) Psychiatric Medical History: Reports: Bipolar Disorder, Dementia, Depression Past Surgical History Past Surgical History: Reports: Hysterectomy Social History Smoking Status: Never Smoker Frequency of Alcohol Use: None Hx Recreational Drug Use: No Drugs: None Hx Prescription Drug Abuse: No - Advance Directive Resuscitation Status: Full Code Family History Family History: Reviewed & Not Pertinent Parental Family History Reviewed: Yes Children Family History Reviewed: Yes Sibling(s) Family History Reviewed.: Yes Medication/Allergy Home Medications: Aripiprazole [Abilify 10 mg Tablet] 10 mg PO DAILY 03/19/19 Baclofen [Baclofen 10 mg Tablet] 10 mg PO TID 03/19/19 Benztropine Mesylate [Benztropine Mesylate 0.5 mg Tablet] 0.5 mg PO QHS 03/19/19 Gabapentin [Neurontin 300 mg Capsule] 300 mg PO BID 03/19/19 Hydrocodone/Acetaminophen [Erie 10-325 mg Tablet] 1 tab PO QIDP PRN 03/19/19 Mirtazapine 45 mg PO QHS 03/19/19 Sertraline HCl 150 mg PO DAILY 03/19/19 Temazepam [Restoril 15 mg Capsule] 15 mg PO QHS 03/19/19 Allergies/Adverse Reactions: carbamazepine [From Tegretol] Allergy (Intermediate, Verified 03/19/19 13:14) swelling/itching ceftriaxone [From Rocephin] Allergy (Intermediate, Verified 03/19/19 13:14) swelling/itching iodine Allergy (Intermediate, Verified 03/19/19 13:14) swelling/itching Review of Systems ROS unobtainable: Due to mental status Physical Exam Vital Signs: Temp Pulse Resp BP Pulse Ox 97.7 F 107 H 16 98/73 L 92 03/19/19 19:31 03/19/19 19:31 03/19/19 19:31 03/19/19 19:31 03/19/19 19:31 Intake & Output 03/18/19 03/19/19 03/20/19 06:59 06:59 06:59 Intake Total 2150 2238 Output Total 1100 1700 Balance 1050 538 Weight 64.9 kg 67.5 kg General appearance: PRESENT: no acute distress Head exam: PRESENT: atraumatic, normocephalic Eye exam: PRESENT: PERRLA Ear exam: PRESENT: normal external ear exam Neck exam: PRESENT: full ROM Respiratory exam: PRESENT: clear to auscultation courtney Cardiovascular exam: PRESENT: RRR, +S1, +S2 Pulses: PRESENT: normal dorsalis pedis pul, +2 pedal pulses bilateral Vascular exam: PRESENT: normal capillary refill GI/Abdominal exam: PRESENT: normal bowel sounds, soft Rectal exam: PRESENT: deferred Neurological exam: PRESENT: altered Psychiatric exam: PRESENT: appropriate affect, normal mood Skin exam: PRESENT: dry, intact, warm Results Laboratory Results: 03/19/19 00:20 03/19/19 20:31 03/19/19 03/19/19 03/19/19 00:20 00:20 00:20 WBC 9.9 RBC 4.16 Hgb 13.8 Hct 41.0 MCV 98 H MCH 33.0 MCHC 33.6 RDW 13.9 Plt Count 322 Seg Neutrophils % 78.9 H Carbonic Acid HCO3/H2CO3 Ratio ABG pH ABG pCO2 ABG pO2 ABG HCO3 ABG O2 Saturation ABG Base Excess VBG pH VBG pCO2 VBG HCO3 VBG Base Excess FiO2 Sodium Cancelled Potassium Cancelled Chloride Cancelled Carbon Dioxide Cancelled Anion Gap Cancelled BUN Cancelled Creatinine Cancelled Est GFR ( Amer) Cancelled Est GFR (Non-Af Amer) Cancelled Glucose Cancelled Lactic Acid 1.2 Calcium Cancelled Total Bilirubin Cancelled AST Cancelled Alkaline Phosphatase Cancelled Total Protein Cancelled Albumin Cancelled Urine Color Urine Appearance Urine pH Ur Specific Lovell Urine Protein Urine Glucose (UA) Urine Ketones Urine Blood Urine Nitrite Ur Leukocyte Esterase Urine WBC (Auto) Urine RBC (Auto) 03/19/19 03/19/19 03/19/19 00:20 00:49 01:46 WBC RBC Hgb Hct MCV MCH MCHC RDW Plt Count Seg Neutrophils % Carbonic Acid HCO3/H2CO3 Ratio ABG pH ABG pCO2 ABG pO2 ABG HCO3 ABG O2 Saturation ABG Base Excess VBG pH 7.35 VBG pCO2 53.9 VBG HCO3 29.1 VBG Base Excess 2.3 FiO2 Sodium Cancelled Potassium Cancelled Chloride Cancelled Carbon Dioxide Cancelled Anion Gap Cancelled BUN Cancelled Creatinine Cancelled Est GFR ( Amer) Cancelled Est GFR (Non-Af Amer) Cancelled Glucose Cancelled Lactic Acid Calcium Cancelled Total Bilirubin Cancelled AST Cancelled Alkaline Phosphatase Cancelled Total Protein Cancelled Albumin Cancelled Urine Color YELLOW Urine Appearance CLEAR Urine pH 5.0 Ur Specific Lovell 1.012 Urine Protein NEGATIVE Urine Glucose (UA) NEGATIVE Urine Ketones NEGATIVE Urine Blood NEGATIVE Urine Nitrite NEGATIVE Ur Leukocyte Esterase NEGATIVE Urine WBC (Auto) 1 Urine RBC (Auto) 1 03/19/19 03/19/19 03/19/19 02:43 08:27 08:40 WBC RBC Hgb Hct MCV MCH MCHC RDW Plt Count Seg Neutrophils % Carbonic Acid 1.25 HCO3/H2CO3 Ratio 16:1 ABG pH 7.31 L ABG pCO2 41.5 ABG pO2 80.0 ABG HCO3 20.2 ABG O2 Saturation 94.8 ABG Base Excess -5.8 VBG pH VBG pCO2 VBG HCO3 VBG Base Excess FiO2 28% Sodium 131.9 L Potassium 5.0 Chloride 91 L Carbon Dioxide 23 Anion Gap 18 BUN 115 H Creatinine 8.63 H Est GFR ( Amer) 6 L Est GFR (Non-Af Amer) Glucose 93 Lactic Acid 0.8 Calcium 8.5 Total Bilirubin 0.5 AST 74 H Alkaline Phosphatase 75 Total Protein 5.6 L Albumin 3.0 L Urine Color Urine Appearance Urine pH Ur Specific Lovell Urine Protein Urine Glucose (UA) Urine Ketones Urine Blood Urine Nitrite Ur Leukocyte Esterase Urine WBC (Auto) Urine RBC (Auto) 03/19/19 20:31 WBC RBC Hgb Hct MCV MCH MCHC RDW Plt Count Seg Neutrophils % Carbonic Acid HCO3/H2CO3 Ratio ABG pH ABG pCO2 ABG pO2 ABG HCO3 ABG O2 Saturation ABG Base Excess VBG pH VBG pCO2 VBG HCO3 VBG Base Excess FiO2 Sodium 135.1 L Potassium 5.1 H Chloride 99 Carbon Dioxide 22 Anion Gap 14 BUN 81 H D Creatinine 4.12 H Est GFR ( Amer) 13 L Est GFR (Non-Af Amer) Glucose 97 Lactic Acid Calcium 9.6 Total Bilirubin AST Alkaline Phosphatase Total Protein Albumin Urine Color Urine Appearance Urine pH Ur Specific Lovell Urine Protein Urine Glucose (UA) Urine Ketones Urine Blood Urine Nitrite Ur Leukocyte Esterase Urine WBC (Auto) Urine RBC (Auto) 03/19/19 03/19/19 00:20 01:46 Troponin I Cancelled 0.206 Impressions: Chest X-Ray 03/19/19 00:22 IMPRESSION: Right lower lobar atelectasis/pneumonia. Assessment & Plan - Diagnosis (1) Septic shock Is this a current diagnosis for this admission?: Yes Plan: Patient presented with septic shock, she was vigorously hydrated with normal saline at 30 mL/kg body weight will transition to Ringer's lactate (2) Right lower lobe pneumonia Qualifiers: Pneumonia type: due to unspecified organism Qualified Code(s): J18.1 - Lobar pneumonia, unspecified organism Is this a current diagnosis for this admission?: Yes Plan: This is probably aspiration pneumonia, she has ceftriaxone allergy, she is empirically started on azithromycin and aztreonam (3) Acute kidney injury Is this a current diagnosis for this admission?: Yes Plan: This is probably prerenal acute kidney injury, she had 4-day history of vomiting she will be fluid resuscitated continue to monitor kidney function (4) Metabolic encephalopathy Is this a current diagnosis for this admission?: Yes Plan: She has multiple organ dysfunction
[2019-03-20] MEDS: AZTREONAM 1 GM in DEXTROSE 5%-WATER 50 ML IV SCH ×3 (05:14→21:08)
[2019-03-20] MEDS: PANTOPRAZOLE SODIUM 40 MG TABLET.DR PO SCH (05:16)
[2019-03-20 06:56] LABS: ALBUMIN 3.1 g/dL (3.5-5.0); ALKALINE PHOSPHATASE 67 U/L (38-126); ANION GAP 12 (5-19); ASPARTATE AMINO TRANSFERASE 45 U/L (14-36); BILIRUBIN,DIRECT 0.3 mg/dL (0.0-0.4); BILIRUBIN,TOTAL 0.4 mg/dL (0.2-1.3); BLOOD UREA NITROGEN 70 mg/dL (7-20); CALCIUM 9.6 mg/dL (8.4-10.2); CARBON DIOXIDE 23 mmol/L (22-30); CHLORIDE 102 mmol/L (98-107); GLUCOSE 81 mg/dL (75-110); POTASSIUM 4.8 mmol/L (3.6-5.0); TOTAL PROTEIN 5.8 g/dL (6.3-8.2)
[2019-03-20] MEDS: AZITHROMYCIN 500 MG in DEXTROSE 5%-WATER 250 ML IV SCH (07:36)
[2019-03-20 09:28] LABS: ABSOLUTE LYMPHOCYTES (AUTO) 0.5 10^3/uL (0.5-4.7); ABSOLUTE MONOCYTES (AUTO) 0.6 10^3/uL (0.1-1.4); ABSOLUTE NEUT (AUTO) 8.7 10^3/uL (1.7-8.2); BASOPHILS % (AUTO) 0.1 % (0-2); EOSINOPHILS % (AUTO) 0.2 % (0-6); LYMPHOCYTES % (AUTO) 5.3 % (13-45); MEAN CORPUSCULAR HEMOGLOBIN 33.8 pg (27.0-33.4); MEAN CORPUSCULAR VOLUME 100 fl (80-97); MONOCYTES % (AUTO) 5.9 % (3-13); PLATELET COUNT 228 10^3/uL (150-450); RED BLOOD COUNT 3.21 10^6/uL (3.72-5.28); RED CELL DISTRIBUTION WIDTH 13.9 % (11.5-14.0); SEGMENTED NEUTROPHILS % (AUTO) 88.5 % (42-78); TOTAL CELLS COUNTED % (AUTO) 100 %; WHITE BLOOD COUNT 9.9 10^3/uL (4.0-10.5)
[2019-03-20 09:29] LABS: HEMOGLOBIN 10.9 g/dL (12.0-15.5)
[2019-03-20 09:41] LABS: ALKALINE PHOSPHATASE 62 U/L (38-126); ANION GAP 12 (5-19); ASPARTATE AMINO TRANSFERASE 38 U/L (14-36); BILIRUBIN,DIRECT 0.2 mg/dL (0.0-0.4); BILIRUBIN,TOTAL 0.4 mg/dL (0.2-1.3); BLOOD UREA NITROGEN 62 mg/dL (7-20); CALCIUM 9.8 mg/dL (8.4-10.2); CARBON DIOXIDE 22 mmol/L (22-30); CHLORIDE 101 mmol/L (98-107); GLUCOSE 135 mg/dL (75-110); POTASSIUM 4.5 mmol/L (3.6-5.0); TOTAL PROTEIN 5.6 g/dL (6.3-8.2)
[2019-03-20] MEDS: ONDANSETRON HCL INJ/PF 4 MG/2 ML SDV IV PRN (12:38)
[2019-03-20] MEDS ORDERED: (PENDING PHARMACY ID) (Aripiprazole [Abilify 10 Mg Tablet] 10 MG) PO SCH (19:00)
[2019-03-20] MEDS ORDERED: (PENDING PHARMACY ID) (Sertraline Hcl [Sertraline Hcl] 150 MG) PO SCH (19:00)
--- NOTE | 2019-03-20 19:34 | RADIOLOGY REPORT (SQ) ---
"EXAM DESCRIPTION: CHEST SINGLE VIEW COMPLETED DATE/TIME: 03/20/2019 7:15 pm REASON FOR STUDY: pneumonia COMPARISON: 03/19/2019 EXAM PARAMETERS: NUMBER OF VIEWS: One view. TECHNIQUE: Single frontal radiographic view of the chest acquired. RADIATION DOSE: NA LIMITATIONS: None. FINDINGS: LUNGS AND PLEURA: No opacities, masses or pneumothorax. No pleural effusion. MEDIASTINUM AND HILAR STRUCTURES: No masses. Contour normal. HEART AND VASCULAR STRUCTURES: Heart normal in size. Normal vasculature. BONES: No acute findings. HARDWARE: None in the chest. OTHER: No other significant finding. IMPRESSION: NO ACUTE RADIOGRAPHIC FINDING IN THE CHEST. TECHNICAL DOCUMENTATION: JOB ID: [id number] [employer] | [employer]- All Rights Reserved Reading location - IP/workstation name: [email or web address]"
[2019-03-20] MEDS: BACLOFEN 10 MG TABLET PO SCH (20:32)
[2019-03-20] MEDS: GABAPENTIN 300 MG CAPSULE PO SCH (20:32)
[2019-03-20] MEDS: SERTRALINE HCL 50 MG TABLET PO SCH (20:33)
[2019-03-20] MEDS: ARIPIPRAZOLE 5 MG TABLET PO SCH (20:33)
[2019-03-20] MEDS: HYDROCODONE/ACETAMINOPHEN 10-325 MG TABLET PO PRN (20:33)
[2019-03-20] MEDS: TEMAZEPAM 15 MG CAPSULE PO SCH (21:07)
[2019-03-20] MEDS: MIRTAZAPINE 15 MG TABLET PO SCH (21:07)
[2019-03-20] MEDS: BENZTROPINE MESYLATE 1 MG TABLET PO SCH (21:08)
[2019-03-20] MEDS ORDERED: (PENDING PHARMACY ID) (Benztropine Mesylate [Benztropine Mesylate 0.5 Mg Tablet] 0.5 MG) PO SCH (22:00)
[2019-03-20] MEDS ORDERED: (PENDING PHARMACY ID) (Mirtazapine [Mirtazapine] 45 MG) PO SCH (22:00)
--- NOTE | 2019-03-20 22:28 | PDOC PROGRESS REPORT ---
Subjective Progress Note for:: 03/20/19 Subjective:: Patient seen by the bedside, she is more responsive today, she is asking for her regular medications Reason For Visit: SEPSIS,PNEUMONIA Physical Exam Vital Signs: Temp Pulse Resp BP Pulse Ox 98.1 F 91 16 140/76 H 93 03/20/19 19:24 03/20/19 19:24 03/20/19 19:24 03/20/19 19:24 03/20/19 19:24 Intake & Output 03/19/19 03/20/19 03/21/19 06:59 06:59 06:59 Intake Total 2150 2238 320 Output Total 1100 2925 2400 Balance 2029 -553 -4857 Weight 64.9 kg 67.5 kg General appearance: PRESENT: no acute distress Eye exam: PRESENT: PERRLA Respiratory exam: PRESENT: crackles Cardiovascular exam: PRESENT: +S1, +S2 GI/Abdominal exam: PRESENT: soft Neurological exam: PRESENT: alert Results Laboratory Results: 03/20/19 08:56 03/20/19 08:56 03/20/19 03/20/19 03/20/19 05:41 05:41 08:56 WBC Cancelled 9.9 RBC Cancelled 3.21 L Hgb Cancelled 10.9 L D Hct Cancelled 32.0 L MCV Cancelled 100 H MCH Cancelled 33.8 H MCHC Cancelled 34.0 RDW Cancelled 13.9 Plt Count Cancelled 228 Seg Neutrophils % Cancelled 88.5 H Sodium 137.3 Potassium 4.8 Chloride 102 Carbon Dioxide 23 Anion Gap 12 BUN 70 H Creatinine 3.19 H Est GFR ( Amer) 17 L Glucose 81 Calcium 9.6 Total Bilirubin 0.4 AST 45 H Alkaline Phosphatase 67 Total Protein 5.8 L Albumin 3.1 L 03/20/19 08:56 WBC RBC Hgb Hct MCV MCH MCHC RDW Plt Count Seg Neutrophils % Sodium 134.7 L Potassium 4.5 Chloride 101 Carbon Dioxide 22 Anion Gap 12 BUN 62 H Creatinine 2.67 H Est GFR ( Amer) 21 L Glucose 135 H Calcium 9.8 Total Bilirubin 0.4 AST 38 H Alkaline Phosphatase 62 Total Protein 5.6 L Albumin 3.0 L 03/19/19 03/19/19 00:20 01:46 Troponin I Cancelled 0.206 Impressions: Chest X-Ray 03/20/19 00:00 IMPRESSION: NO ACUTE RADIOGRAPHIC FINDING IN THE CHEST. Assessment & Plan - Diagnosis (1) Septic shock Is this a current diagnosis for this admission?: Yes Plan: Improved (2) Right lower lobe pneumonia Qualifiers: Pneumonia type: due to unspecified organism Qualified Code(s): J18.1 - Lobar pneumonia, unspecified organism Is this a current diagnosis for this admission?: Yes Plan: The lungs sound crackles on auscultation of the chest but chest x-ray is negative, continue IV antibiotic for pneumonia (3) Acute kidney injury Is this a current diagnosis for this admission?: Yes (4) Metabolic encephalopathy Is this a current diagnosis for this admission?: Yes Plan: Patient is more responsive
[2019-03-21] MEDS: PANTOPRAZOLE SODIUM 40 MG TABLET.DR PO SCH (05:28)
[2019-03-21] MEDS: AZTREONAM 1 GM in DEXTROSE 5%-WATER 50 ML IV SCH ×3 (05:28→21:29)
[2019-03-21] MEDS: HYDROCODONE/ACETAMINOPHEN 10-325 MG TABLET PO PRN ×2 (07:58→21:29)
[2019-03-21] MEDS: AZITHROMYCIN 500 MG in DEXTROSE 5%-WATER 250 ML IV SCH (07:59)
[2019-03-21 09:04] LABS: HEMATOCRIT 33.5 % (36.0-47.0); HEMOGLOBIN 11.2 g/dL (12.0-15.5); MEAN CORPUSCULAR HEMOGLOBIN 33.1 pg (27.0-33.4); MEAN CORPUSCULAR HGB CONC 33.5 g/dL (32.0-36.0); MEAN CORPUSCULAR VOLUME 99 fl (80-97); PLATELET COUNT 238 10^3/uL (150-450); RED BLOOD COUNT 3.39 10^6/uL (3.72-5.28); RED CELL DISTRIBUTION WIDTH 13.7 % (11.5-14.0); WHITE BLOOD COUNT 10.2 10^3/uL (4.0-10.5)
[2019-03-21] MEDS: SERTRALINE HCL 50 MG TABLET PO SCH (09:05)
[2019-03-21] MEDS: BACLOFEN 10 MG TABLET PO SCH ×3 (09:05→17:28)
[2019-03-21] MEDS: ARIPIPRAZOLE 5 MG TABLET PO SCH (09:05)
[2019-03-21] MEDS: GABAPENTIN 300 MG CAPSULE PO SCH ×2 (09:05→17:27)
[2019-03-21 09:14] LABS: ALBUMIN 3.3 g/dL (3.5-5.0); ALKALINE PHOSPHATASE 76 U/L (38-126); ANION GAP 12 (5-19); ASPARTATE AMINO TRANSFERASE 27 U/L (14-36); BILIRUBIN,DIRECT 0.2 mg/dL (0.0-0.4); BILIRUBIN,TOTAL 0.5 mg/dL (0.2-1.3); CALCIUM 10.5 mg/dL (8.4-10.2); CARBON DIOXIDE 24 mmol/L (22-30); CHLORIDE 99 mmol/L (98-107); GLUCOSE 125 mg/dL (75-110); POTASSIUM 4.4 mmol/L (3.6-5.0); TOTAL PROTEIN 6.1 g/dL (6.3-8.2)
[2019-03-21 09:21] LABS: BLOOD UREA NITROGEN 33 mg/dL (7-20)
[2019-03-21 10:10] LABS: ABSOLUTE LYMPHOCYTES# (MANUAL) 0.7 10^3/uL (0.5-4.7); ABSOLUTE MONOCYTES # (MANUAL) 0.6 10^3/uL (0.1-1.4); BASOPHILS % (MANUAL) 0 % (0-2); EOSINOPHILS % (MANUAL) 1 % (0-6); LYMPHOCYTES % (MANUAL) 7 % (13-45); MONOCYTES % (MANUAL) 6 % (3-13); PLATELET COMMENT ADEQUATE; RBC MORPHOLOGY COMMENT NORMO-CYTIC/CHROMIC; SEGMENTED NEUTROPHILS % (MAN) 86 % (42-78); TOTAL CELLS COUNTED 100
[2019-03-21] MEDS: RINGERS SOLUTION,LACTATED 1,000 ML IV PRN (10:44)
--- NOTE | 2019-03-21 13:15 | PDOC PROGRESS REPORT ---
Subjective Progress Note for:: 03/21/19 Subjective:: Patient seen by the bedside, she continues to improve on present regimen Reason For Visit: SEPSIS,PNEUMONIA Physical Exam Vital Signs: Temp Pulse Resp BP Pulse Ox 98.4 F 88 18 152/79 H 91 L 03/21/19 11:45 03/21/19 11:45 03/21/19 11:45 03/21/19 11:45 03/21/19 11:45 Intake & Output 03/20/19 03/21/19 03/22/19 06:59 06:59 06:59 Intake Total 2238 570 668 Output Total 2927 3550 1000 Balance -957 -2980 -332 Weight 67.5 kg 68.7 kg General appearance: PRESENT: no acute distress Eye exam: PRESENT: PERRLA Respiratory exam: PRESENT: rales Cardiovascular exam: PRESENT: +S1, +S2 GI/Abdominal exam: PRESENT: soft Neurological exam: PRESENT: alert Results Laboratory Results: 03/21/19 08:26 03/21/19 08:26 03/21/19 03/21/19 08:26 08:26 WBC 10.2 RBC 3.39 L Hgb 11.2 L Hct 33.5 L MCV 99 H MCH 33.1 MCHC 33.5 RDW 13.7 Plt Count 238 Seg Neutrophils % Not Reportable Sodium 135.2 L Potassium 4.4 Chloride 99 Carbon Dioxide 24 Anion Gap 12 BUN 33 H D Creatinine 1.33 H Est GFR ( Amer) 48 L Glucose 125 H Calcium 10.5 H Total Bilirubin 0.5 AST 27 Alkaline Phosphatase 76 Total Protein 6.1 L Albumin 3.3 L 03/19/19 00:49 Catheterized Urine Urine Culture - Final NO GROWTH 2 DAYS 03/19/19 03/19/19 00:20 01:46 Troponin I Cancelled 0.206 Impressions: Chest X-Ray 03/20/19 00:00 IMPRESSION: NO ACUTE RADIOGRAPHIC FINDING IN THE CHEST. Assessment & Plan - Diagnosis (1) Septic shock Is this a current diagnosis for this admission?: Yes Plan: Improved (2) Right lower lobe pneumonia Qualifiers: Pneumonia type: due to unspecified organism Qualified Code(s): J18.1 - Lobar pneumonia, unspecified organism Is this a current diagnosis for this admission?: Yes Plan: Continue IV antibiotic (3) Acute kidney injury Is this a current diagnosis for this admission?: Yes Plan: Improved (4) Metabolic encephalopathy Is this a current diagnosis for this admission?: Yes (5) Hypotension Qualifiers: Hypotension type: other hypotension type Qualified Code(s): I95.89 - Other hypotension Is this a current diagnosis for this admission?: Yes Plan: Resolved
[2019-03-21] MEDS: ACETAMINOPHEN 325 MG TABLET PO PRN ×2 (13:32→17:27)
[2019-03-21] MEDS: TEMAZEPAM 15 MG CAPSULE PO SCH (21:29)
[2019-03-21] MEDS: BENZTROPINE MESYLATE 1 MG TABLET PO SCH (21:29)
[2019-03-21] MEDS: MIRTAZAPINE 15 MG TABLET PO SCH (21:29)
[2019-03-22] MEDS: AZTREONAM 1 GM in DEXTROSE 5%-WATER 50 ML IV SCH ×3 (06:00→21:38)
[2019-03-22] MEDS: PANTOPRAZOLE SODIUM 40 MG TABLET.DR PO SCH (06:15)
[2019-03-22] MEDS: AZITHROMYCIN 500 MG in DEXTROSE 5%-WATER 250 ML IV SCH (08:26)
[2019-03-22 09:35] LABS: HEMATOCRIT 31.3 % (36.0-47.0); HEMOGLOBIN 10.6 g/dL (12.0-15.5); MEAN CORPUSCULAR HEMOGLOBIN 33.4 pg (27.0-33.4); MEAN CORPUSCULAR VOLUME 98 fl (80-97); PLATELET COUNT 215 10^3/uL (150-450); RED BLOOD COUNT 3.18 10^6/uL (3.72-5.28); RED CELL DISTRIBUTION WIDTH 13.9 % (11.5-14.0); WHITE BLOOD COUNT 8.6 10^3/uL (4.0-10.5)
[2019-03-22] MEDS: RINGERS SOLUTION,LACTATED 1,000 ML IV PRN ×2 (09:40→21:43)
[2019-03-22] MEDS: HYDROCODONE/ACETAMINOPHEN 10-325 MG TABLET PO PRN ×2 (09:40→17:54)
[2019-03-22] MEDS: GABAPENTIN 300 MG CAPSULE PO SCH ×2 (09:41→17:54)
[2019-03-22] MEDS: ARIPIPRAZOLE 5 MG TABLET PO SCH (09:41)
[2019-03-22] MEDS: BACLOFEN 10 MG TABLET PO SCH ×3 (09:41→17:54)
[2019-03-22] MEDS: SERTRALINE HCL 50 MG TABLET PO SCH (09:41)
[2019-03-22 09:49] LABS: ALBUMIN 2.9 g/dL (3.5-5.0); ALKALINE PHOSPHATASE 66 U/L (38-126); ANION GAP 9 (5-19); ASPARTATE AMINO TRANSFERASE 23 U/L (14-36); BILIRUBIN,DIRECT 0.1 mg/dL (0.0-0.4); BILIRUBIN,TOTAL 0.3 mg/dL (0.2-1.3); BLOOD UREA NITROGEN 21 mg/dL (7-20); CALCIUM 10.1 mg/dL (8.4-10.2); CARBON DIOXIDE 24 mmol/L (22-30); CHLORIDE 102 mmol/L (98-107); GLUCOSE 175 mg/dL (75-110); POTASSIUM 4.4 mmol/L (3.6-5.0); TOTAL PROTEIN 5.7 g/dL (6.3-8.2)
[2019-03-22 10:03] LABS: ABSOLUTE LYMPHOCYTES# (MANUAL) 0.7 10^3/uL (0.5-4.7); ABSOLUTE MONOCYTES # (MANUAL) 0.3 10^3/uL (0.1-1.4); BASOPHILS % (MANUAL) 1 % (0-2); EOSINOPHILS % (MANUAL) 1 % (0-6); LYMPHOCYTES % (MANUAL) 8 % (13-45); MONOCYTES % (MANUAL) 4 % (3-13); SEGMENTED NEUTROPHILS % (MAN) 86 % (42-78); TOTAL CELLS COUNTED 100
[2019-03-22 10:04] LABS: PLATELET COMMENT ADEQUATE; RBC MORPHOLOGY COMMENT NORMO-CYTIC/CHROMIC
--- NOTE | 2019-03-22 17:11 | PDOC PROGRESS REPORT ---
Subjective Progress Note for:: 03/22/19 Subjective:: Patient seen by the bedside, she had retention of urine yesterday requiring Costa catheter Reason For Visit: SEPSIS,PNEUMONIA Physical Exam Vital Signs: Temp Pulse Resp BP Pulse Ox 98.4 F 80 16 118/78 94 03/22/19 12:04 03/22/19 12:04 03/22/19 08:00 03/22/19 12:04 03/22/19 12:04 Intake & Output 03/21/19 03/22/19 03/23/19 06:59 06:59 06:59 Intake Total 570 2450 250 Output Total 3550 2550 Balance -2980 -100 250 Weight 68.7 kg 67 kg General appearance: PRESENT: no acute distress Eye exam: PRESENT: PERRLA Respiratory exam: PRESENT: clear to auscultation courtney Cardiovascular exam: PRESENT: +S1, +S2 GI/Abdominal exam: PRESENT: soft Results Laboratory Results: 03/22/19 09:11 03/22/19 09:11 03/22/19 03/22/19 09:11 09:11 WBC 8.6 RBC 3.18 L Hgb 10.6 L Hct 31.3 L MCV 98 H MCH 33.4 MCHC 34.0 RDW 13.9 Plt Count 215 Seg Neutrophils % Not Reportable Sodium 135.2 L Potassium 4.4 Chloride 102 Carbon Dioxide 24 Anion Gap 9 BUN 21 H Creatinine 0.97 Est GFR ( Amer) > 60 Glucose 175 H Calcium 10.1 Total Bilirubin 0.3 AST 23 Alkaline Phosphatase 66 Total Protein 5.7 L Albumin 2.9 L 03/19/19 03/19/19 00:20 01:46 Troponin I Cancelled 0.206 Impressions: Chest X-Ray 03/20/19 00:00 IMPRESSION: NO ACUTE RADIOGRAPHIC FINDING IN THE CHEST. Assessment & Plan - Diagnosis (1) Septic shock Is this a current diagnosis for this admission?: Yes (2) Right lower lobe pneumonia Qualifiers: Pneumonia type: due to unspecified organism Qualified Code(s): J18.1 - Lobar pneumonia, unspecified organism Is this a current diagnosis for this admission?: Yes (3) Acute kidney injury Is this a current diagnosis for this admission?: Yes (4) Metabolic encephalopathy Is this a current diagnosis for this admission?: Yes (5) Hypotension Qualifiers: Hypotension type: other hypotension type Qualified Code(s): I95.89 - Other hypotension Is this a current diagnosis for this admission?: Yes (6) Retention of urine Is this a current diagnosis for this admission?: Yes Plan: Physical therapy consultation
[2019-03-22] MEDS: ACETAMINOPHEN 325 MG TABLET PO PRN (21:31)
[2019-03-22] MEDS: BENZTROPINE MESYLATE 1 MG TABLET PO SCH (21:31)
[2019-03-22] MEDS: TEMAZEPAM 15 MG CAPSULE PO SCH (21:34)
[2019-03-22] MEDS: MIRTAZAPINE 15 MG TABLET PO SCH (21:34)
[2019-03-23] MEDS: HYDROCODONE/ACETAMINOPHEN 10-325 MG TABLET PO PRN ×2 (03:43→13:34)
[2019-03-23] MEDS: PANTOPRAZOLE SODIUM 40 MG TABLET.DR PO SCH (05:27)
[2019-03-23] MEDS: AZTREONAM 1 GM in DEXTROSE 5%-WATER 50 ML IV SCH ×3 (05:27→22:17)
[2019-03-23] MEDS: AZITHROMYCIN 500 MG in DEXTROSE 5%-WATER 250 ML IV SCH (09:06)
[2019-03-23] MEDS: SERTRALINE HCL 50 MG TABLET PO SCH (09:07)
[2019-03-23] MEDS: GABAPENTIN 300 MG CAPSULE PO SCH ×2 (09:07→17:12)
[2019-03-23] MEDS: BACLOFEN 10 MG TABLET PO SCH ×3 (09:07→17:12)
[2019-03-23] MEDS: ARIPIPRAZOLE 5 MG TABLET PO SCH (09:07)
[2019-03-23 09:28] LABS: HEMOGLOBIN 10.1 g/dL (12.0-15.5); MEAN CORPUSCULAR HEMOGLOBIN 33.4 pg (27.0-33.4); MEAN CORPUSCULAR HGB CONC 33.8 g/dL (32.0-36.0); MEAN CORPUSCULAR VOLUME 99 fl (80-97); PLATELET COUNT 245 10^3/uL (150-450); RED BLOOD COUNT 3.04 10^6/uL (3.72-5.28); RED CELL DISTRIBUTION WIDTH 13.9 % (11.5-14.0); WHITE BLOOD COUNT 7.2 10^3/uL (4.0-10.5)
[2019-03-23 09:48] LABS: ALBUMIN 2.8 g/dL (3.5-5.0); ALKALINE PHOSPHATASE 67 U/L (38-126); ANION GAP 9 (5-19); ASPARTATE AMINO TRANSFERASE 22 U/L (14-36); BILIRUBIN,DIRECT 0.2 mg/dL (0.0-0.4); BILIRUBIN,TOTAL 0.4 mg/dL (0.2-1.3); BLOOD UREA NITROGEN 16 mg/dL (7-20); CALCIUM 9.7 mg/dL (8.4-10.2); CARBON DIOXIDE 25 mmol/L (22-30); CHLORIDE 104 mmol/L (98-107); GLUCOSE 95 mg/dL (75-110); POTASSIUM 4.1 mmol/L (3.6-5.0); TOTAL PROTEIN 5.6 g/dL (6.3-8.2)
[2019-03-23 09:57] LABS: ABSOLUTE LYMPHOCYTES# (MANUAL) 1.4 10^3/uL (0.5-4.7); ABSOLUTE MONOCYTES # (MANUAL) 0.9 10^3/uL (0.1-1.4); BAND NEUTROPHILS % (MANUAL) 1 % (3-5); BASOPHILS % (MANUAL) 1 % (0-2); EOSINOPHILS % (MANUAL) 4 % (0-6); LYMPHOCYTES % (MANUAL) 16 % (13-45); MONOCYTES % (MANUAL) 13 % (3-13); MYELOCYTES % (MANUAL) 2 % (0); SEGMENTED NEUTROPHILS % (MAN) 60 % (42-78); TOTAL CELLS COUNTED 100
[2019-03-23 09:58] LABS: PLATELET COMMENT ADEQUATE
--- NOTE | 2019-03-23 20:18 | PDOC PROGRESS REPORT ---
Subjective Progress Note for:: 03/23/19 Subjective:: Patient was admitted for septic shock, she has done very well clinically over the weekend she developed urinary retention after urinary catheter was removed, it was then reinserted. The urinary catheter removed again today will watch for her response Reason For Visit: SEPSIS,PNEUMONIA Physical Exam Vital Signs: Temp Pulse Resp BP Pulse Ox 97.1 F 84 18 145/77 H 94 03/23/19 16:39 03/23/19 19:00 03/23/19 16:39 03/23/19 16:39 03/23/19 16:39 Intake & Output 03/22/19 03/23/19 03/24/19 06:59 06:59 06:59 Intake Total 2450 1094 731 Output Total 2550 2125 600 Balance -100 -1031 131 Weight 67 kg 67.1 kg General appearance: PRESENT: no acute distress Eye exam: PRESENT: PERRLA Respiratory exam: PRESENT: clear to auscultation courtney Cardiovascular exam: PRESENT: +S1, +S2 GI/Abdominal exam: PRESENT: soft Neurological exam: PRESENT: alert Results Laboratory Results: 03/23/19 09:00 03/23/19 09:00 03/23/19 03/23/19 09:00 09:00 WBC 7.2 RBC 3.04 L Hgb 10.1 L Hct 30.0 L MCV 99 H MCH 33.4 MCHC 33.8 RDW 13.9 Plt Count 245 Seg Neutrophils % Not Reportable Sodium 138.1 Potassium 4.1 Chloride 104 Carbon Dioxide 25 Anion Gap 9 BUN 16 Creatinine 0.87 Est GFR ( Amer) > 60 Glucose 95 Calcium 9.7 Total Bilirubin 0.4 AST 22 Alkaline Phosphatase 67 Total Protein 5.6 L Albumin 2.8 L 03/19/19 03/19/19 00:20 01:46 Troponin I Cancelled 0.206 Impressions: Chest X-Ray 03/20/19 00:00 IMPRESSION: NO ACUTE RADIOGRAPHIC FINDING IN THE CHEST. Assessment & Plan - Diagnosis (1) Septic shock Is this a current diagnosis for this admission?: Yes Plan: Resolved (2) Right lower lobe pneumonia Qualifiers: Pneumonia type: due to unspecified organism Qualified Code(s): J18.1 - Lobar pneumonia, unspecified organism Is this a current diagnosis for this admission?: Yes (3) Acute kidney injury Is this a current diagnosis for this admission?: Yes (4) Metabolic encephalopathy Is this a current diagnosis for this admission?: Yes (5) Hypotension Qualifiers: Hypotension type: other hypotension type Qualified Code(s): I95.89 - Other hypotension Is this a current diagnosis for this admission?: Yes (6) Retention of urine Is this a current diagnosis for this admission?: Yes
[2019-03-23] MEDS: BENZTROPINE MESYLATE 1 MG TABLET PO SCH (22:16)
[2019-03-23] MEDS: MIRTAZAPINE 15 MG TABLET PO SCH (22:17)
[2019-03-23] MEDS: TEMAZEPAM 15 MG CAPSULE PO SCH (22:17)
[2019-03-24] MEDS: PANTOPRAZOLE SODIUM 40 MG TABLET.DR PO SCH (05:42)
[2019-03-24] MEDS: AZTREONAM 1 GM in DEXTROSE 5%-WATER 50 ML IV SCH ×2 (05:42→14:30)
[2019-03-24] MEDS: AZITHROMYCIN 500 MG in DEXTROSE 5%-WATER 250 ML IV SCH (07:57)
[2019-03-24] MEDS: RINGERS SOLUTION,LACTATED 1,000 ML IV PRN (08:01)
[2019-03-24] MEDS: HYDROCODONE/ACETAMINOPHEN 10-325 MG TABLET PO PRN ×2 (08:23→14:29)
[2019-03-24 09:12] LABS: ABSOLUTE EOSINOPHILS # (AUTO) 0.3 10^3/uL (0.0-0.6); ABSOLUTE LYMPHOCYTES (AUTO) 1.2 10^3/uL (0.5-4.7); ABSOLUTE MONOCYTES (AUTO) 0.6 10^3/uL (0.1-1.4); ABSOLUTE NEUT (AUTO) 5.7 10^3/uL (1.7-8.2); BASOPHILS % (AUTO) 0.5 % (0-2); EOSINOPHILS % (AUTO) 3.4 % (0-6); HEMATOCRIT 29.6 % (36.0-47.0); LYMPHOCYTES % (AUTO) 15.2 % (13-45); MEAN CORPUSCULAR HEMOGLOBIN 33.5 pg (27.0-33.4); MEAN CORPUSCULAR HGB CONC 33.9 g/dL (32.0-36.0); MEAN CORPUSCULAR VOLUME 99 fl (80-97); MONOCYTES % (AUTO) 7.3 % (3-13); PLATELET COUNT 260 10^3/uL (150-450); RED BLOOD COUNT 2.99 10^6/uL (3.72-5.28); RED CELL DISTRIBUTION WIDTH 13.7 % (11.5-14.0); SEGMENTED NEUTROPHILS % (AUTO) 73.6 % (42-78); TOTAL CELLS COUNTED % (AUTO) 100 %; WHITE BLOOD COUNT 7.7 10^3/uL (4.0-10.5)
[2019-03-24 09:34] LABS: ALBUMIN 2.9 g/dL (3.5-5.0); ALKALINE PHOSPHATASE 68 U/L (38-126); ANION GAP 10 (5-19); ASPARTATE AMINO TRANSFERASE 23 U/L (14-36); BILIRUBIN,DIRECT 0.1 mg/dL (0.0-0.4); BILIRUBIN,TOTAL 0.3 mg/dL (0.2-1.3); BLOOD UREA NITROGEN 11 mg/dL (7-20); CALCIUM 9.8 mg/dL (8.4-10.2); CARBON DIOXIDE 22 mmol/L (22-30); CHLORIDE 104 mmol/L (98-107); GLUCOSE 163 mg/dL (75-110); POTASSIUM 3.9 mmol/L (3.6-5.0); TOTAL PROTEIN 5.7 g/dL (6.3-8.2)
[2019-03-24] MEDS: ARIPIPRAZOLE 5 MG TABLET PO SCH (09:43)
[2019-03-24] MEDS: SERTRALINE HCL 50 MG TABLET PO SCH (09:43)
[2019-03-24] MEDS: GABAPENTIN 300 MG CAPSULE PO SCH ×2 (09:43→17:27)
[2019-03-24] MEDS: BACLOFEN 10 MG TABLET PO SCH ×3 (09:43→17:26)
[2019-03-24] MEDS ORDERED: ACETAMINOPHEN 325 MG TABLET PO PRN (13:14)
[2019-03-24 18:17] VITALS: BP 147/86
--- NOTE | 2019-03-24 20:42 | PDOC DISCHARGE SUMMARY ---
General - Admit/Disc Date/PCP Admission Date/Primary Care Provider: 03/19/19 04:26 Discharge Date: 03/24/19 - Discharge Diagnosis (1) Septic shock Is this a current diagnosis for this admission?: Yes (2) Right lower lobe pneumonia Is this a current diagnosis for this admission?: Yes (3) Acute kidney injury Is this a current diagnosis for this admission?: Yes (4) Metabolic encephalopathy Is this a current diagnosis for this admission?: Yes (5) Hypotension Is this a current diagnosis for this admission?: Yes (6) Retention of urine Is this a current diagnosis for this admission?: Yes - Additional Information Resuscitation Status: Full Code Discharge Diet: As Tolerated Discharge Activity: Activity As Tolerated, Balance Activity w/Rest Home Medications: RX: Aripiprazole [Abilify 10 mg Tablet] 10 mg PO DAILY 03/19/19 RX: Baclofen [Baclofen 10 mg Tablet] 10 mg PO TID 03/19/19 RX: Benztropine Mesylate [Benztropine Mesylate 0.5 mg Tablet] 0.5 mg PO QHS 03/19/19 RX: Gabapentin [Neurontin 300 mg Capsule] 300 mg PO BID 03/19/19 RX: Hydrocodone/Acetaminophen [[place] 10-325 mg Tablet] 1 tab PO QIDP PRN 03/19/19 RX: Mirtazapine 45 mg PO QHS 03/19/19 RX: Sertraline HCl 150 mg PO DAILY 03/19/19 RX: Temazepam [Restoril 15 mg Capsule] 15 mg PO QHS 03/19/19 History of Present Illness History of Present Illness: JOCELYN KIM is a 68 year old female, She came to the emergency room for evaluation, with nausea, vomiting and diarrhea, the history was that she started vomiting on Saturday about 4 days ago, there was also associated fever, she became confused earlier today she was then brought to the emergency room for evaluation when she arrived in the emergency room, the blood pressure recorded was 81/64, She was resuscitated with fluid, fluid therapy was ordered at 200 cc/h the serum creatinine was 8.6, the blood the chest x-ray demonstrated mild patchy opacity of the right lower lung field .History taking was a challenge initially because patient was confused, there was evidence of end organ dysfunction including acute kidney injury, encephalopathy, hypotension consistent with severe sepsis. She was severely vigorously fluid resuscitated she also required dopamine infusion in the emergency room to get the blood pressure to a reasonable level. Hospital Course Hospital Course: Patient was admitted for the management of septic shock,There was evidence of endorgan dysfunction including acute kidney injury, acute encephalopathy, hypotension, she required intravenous pressors initially with dopamine with confucianism of blood pressure. She was treated with IV fluid normal saline bolus at 30 cc/kg body weight this was transitioned to Ringer's lactate.On admission the serum creatinine was 8, with hydration the serum creatinine was normalized. No specific pathogen was cultured from the blood of the urine she was treated empirically with IV antibiotic patient responded very well to treatment with confucianism of normal cerebral function, normal kidney function and also blood pressure. Patient is discharged home today Physical Exam Vital Signs: Temp Pulse Resp BP Pulse Ox 98.2 F 77 16 147/86 H 100 03/24/19 18:14 03/24/19 18:14 03/24/19 18:14 03/24/19 18:14 03/24/19 18:14 Intake & Output 03/23/19 03/24/19 03/25/19 06:59 06:59 06:59 Intake Total 1094 1981 250 Output Total 2125 2850 Balance -1031 -869 250 Weight 67.1 kg 67.3 kg General appearance: PRESENT: no acute distress, well-developed, well-nourished Head exam: PRESENT: atraumatic, normocephalic Eye exam: PRESENT: conjunctiva pink, EOMI, PERRLA Ear exam: PRESENT: normal external ear exam Mouth exam: PRESENT: moist, tongue midline Neck exam: PRESENT: full ROM Respiratory exam: PRESENT: clear to auscultation courtney Cardiovascular exam: PRESENT: RRR, +S1, +S2 Pulses: PRESENT: normal dorsalis pedis pul, +2 pedal pulses bilateral Vascular exam: PRESENT: normal capillary refill GI/Abdominal exam: PRESENT: normal bowel sounds, soft Rectal exam: PRESENT: deferred Neurological exam: PRESENT: alert, awake, oriented to person, oriented to place, oriented to time, oriented to situation, CN II-XII grossly intact Psychiatric exam: PRESENT: appropriate affect, normal mood Skin exam: PRESENT: dry, intact, warm Results Laboratory Results: 03/24/19 08:45 03/24/19 08:45 03/24/19 03/24/19 08:45 08:45 WBC 7.7 RBC 2.99 L Hgb 10.0 L Hct 29.6 L MCV 99 H MCH 33.5 H MCHC 33.9 RDW 13.7 Plt Count 260 Seg Neutrophils % 73.6 Sodium 135.7 L Potassium 3.9 Chloride 104 Carbon Dioxide 22 Anion Gap 10 BUN 11 Creatinine 0.75 Est GFR ( Amer) > 60 Glucose 163 H Calcium 9.8 Total Bilirubin 0.3 AST 23 Alkaline Phosphatase 68 Total Protein 5.7 L Albumin 2.9 L 03/19/19 01:46 Blood Blood Culture - Final NO GROWTH IN 5 DAYS 03/19/19 00:20 Blood Blood Culture - Final NO GROWTH IN 5 DAYS 03/19/19 03/19/19 00:20 01:46 Troponin I Cancelled 0.206 Impressions: Chest X-Ray 03/20/19 00:00 IMPRESSION: NO ACUTE RADIOGRAPHIC FINDING IN THE CHEST. Qualifiers - * PATIENT BEING DISCHARGED WITH ANY OF THE FOLLOWING DIAGNOSIS: No VTE patient discharged on overlapping Therapy?: No Reason(s) for not prescribing Overlap Therapy:: Not indicated Stroke Pt being discharged on Anti-thrombolytic therapy?: No Reason(s) for not prescribing Anti-thrombolytic therapy:: Not indicated Stroke Pt being discharged on Anti-coagulation therapy?: No Reason(s) for not prescribing Anti-coagulation therapy:: Not indicated Stroke Pt being discharged on Statins?: No Reason(s) for not prescribing Statins therapy:: Not indicated CA Pt being discharged on Aspirin therapy?: No Reason(s) for not prescribing Aspirin therapy:: Not indicated CA Pt being discharged on Statins?: No Reason(s) for not prescribing Statin therapy:: Not indicated CA Pt discharged ACEI/ARBS?: No Reason(s) for not prescribing ACEI/ARBS:: Not indicated Acute Heart Failure - Is this a Heart Failure Patient?: No Follow-up Appointment scheduled within 7 days?: Yes
== END 2019-03-24 18:33 | disposition home or self-care (01) | DRG 871 ==
LOC: ER 00:01 → EH 04:26 → 3S 19:08
PROVIDERS: ADMIT Internal Medicine; ATTEND Internal Medicine
DX: A41.9 Sepsis, unspecified organism (principal); J18.1 Lobar pneumonia, unspecified organism; R65.21 Severe sepsis with septic shock; G93.41 Metabolic encephalopathy; N17.9 Acute kidney failure, unspecified; I10 Essential (primary) hypertension; K21.9 Gastro-esophageal reflux disease without esophagitis; R33.9 Retention of urine, unspecified; F31.9 Bipolar disorder, unspecified; F17.210 Nicotine dependence, cigarettes, uncomplicated; F03.90 Unspecified dementia, unspecified severity, without behavioral disturbance, psychotic disturbance, mood disturbance, and anxiety
CPT/HCPCS: 36415; 36600; 51702; 71045; 80053; 81001; 82803; 82962; 83605; 84484; 85025; 85610; 87040; 87070; 87086; 93005; 93010; 96361; 96365; 96375; 99285; J0456; J1265; J1956; J2270; J2405; J3490; J7030; J7060; J7120